=== PATIENT | male | born 1970 | race Caucasian/White ===

== ENCOUNTER 2020-03-11 14:16 | Outpatient (REF) | payer OTHER, SELFPAY ==
[2020-03-11 15:43] LABS: Creatinine Urine 114.62 mg/dL; Microalbumin Urine < 5.0 mg/L
== END 2020-03-11 14:17 | disposition home or self-care (01) ==
LOC: HO.LNP 14:16
PROVIDERS: Visit Provider Family Medicine
DX: E10.65 Type 1 diabetes mellitus with hyperglycemia (principal); I10 Essential (primary) hypertension; R68.82 Decreased libido; N52.9 Male erectile dysfunction, unspecified; Z13.9 Encounter for screening, unspecified
CPT/HCPCS: 82043

== ENCOUNTER 2021-01-11 04:25 | Emergency (ER) | payer OTHER, SELFPAY ==
--- NOTE | ~2021-01-11 | XR_ITS ---
EXAMINATION: XR FOOT, LEFT CLINICAL INFORMATION: Left foot pain, dropped engine on foot COMPARISON: None TECHNIQUE: AP, lateral, and oblique views of the left foot. FINDINGS: Osseous alignment is anatomic. No acute fracture is seen. Chronic fracture of the distal fibula is noted. Vascular calcifications are present. XR/XR foot LT 2V IMPRESSION: No acute findings identified.
[2021-01-11 04:48] VITALS: BP 123/61; PULSE 69; RESP 16; TEMP 36; O2SAT 98; BMI 20.9
--- NOTE | 2021-01-11 05:04 | ED.LOWEXIN ---
HPI - Extremity Injury (Lower) General Chief Complaint: Extremity Injury, Lower Stated Complaint: foot inj Time Seen by Provider: 01/11/21 05:04 Source: patient Mode of arrival: ambulatory History of Present Illness HPI Narrative: 50-year-old male came in for evaluation after a bed fell on his left big toe. Patient was moving a bed fell and landed on her left big toe, severe pain, unable to wear his shoes and ambulate due to pain, black and blue to the big toe. No other injuries. Related Data Home Medications Medication Instructions Recorded Confirmed blood sugar diagnostic #10 ea 03/11/20 famotidine 20 mg tablet 20 mg PO BEDTIME 03/11/20 fluoxetine 60 mg tablet 60 mg PO DAILY 03/11/20 omeprazole 20 mg capsule,delayed 20 mg PO BID 03/11/20 release ropinirole 2 mg tablet 2 mg PO BEDTIME 03/11/20 tadalafil 10 mg tablet [id number] mg PO 03/11/20 tramadol 50 mg tablet 50 mg PO Q6H PRN 03/11/20 adalimumab 80 mg/0.8 mL mg SUBCUT 07/15/20 subcutaneous pen kit Previous Rx's Medication Instructions Recorded hydrocortisone acetate 25 mg 25 mg NE BEDTIME 30 Days #30 ea 01/23/20 rectal suppository mesalamine 1,000 mg rectal 1 g NE BEDTIME 30 Days #30 ea 01/24/20 suppository sildenafil 100 mg tablet (Viagra) 100 mg PO DAILY PRN 30 Days #4 tab 03/11/20 atorvastatin 80 mg tablet 80 mg PO DAILY 90 Days #90 tab 05/03/20 metoprolol tartrate 25 mg tablet 25 mg PO DAILY 90 Days #90 tab 05/03/20 mesalamine 1.2 gram tablet,delayed 3.6 g PO DAILY #90 tab 06/04/20 release cyproheptadine 4 mg tablet 4 mg PO BID #60 tab 07/29/20 blood sugar diagnostic #200 ea 08/21/20 Novolog U-100 Insulin aspart 100 60 unit SUBCUT DAILY #20 ml NS 09/24/20 unit/mL subcutaneous solution (insulin aspart U-100) Allergies Allergy/AdvReac Type Severity Reaction Status Date / Time No Known Allergies Allergy Verified 07/15/20 14:17 [No Known Allergies*] Review of Systems Review of Systems: All other systems are reviewed and are negative Constitutional: Reports as per HPI and Reports no additional constitutional complaints Eyes: Reports as per HPI and Reports no additional eye complaints Reports system reviewed and no additional complaints, except as documented Cardiovascular: Reports as per HPI and Reports no additional cardiovascular complaints Respiratory: Reports as per HPI and Reports no additional respiratory complaints Gastrointestinal: Reports as per HPI and Reports no additional gastrointestinal complaints Genitourinary: Reports no additional female genitourinary complaints Musculoskeletal: Reports no additional musculoskeletal complaints Skin/Breast: Reports system reviewed and no additional complaints, except as docu Psychiatric: Reports no additional psychiatric complaints Endocrine: Reports no additional endocrine complaints Hematologic/Lymphatic: Reports no additional hematologic/lymphatic complaints Allergic/Immunologic: Reports no additional allergic/immunologic complaints Reports system reviewed and no additional complaints, except as documented and Reports Abnormal speech present COUNTS INCLUDE 234 BEDS AT THE [facility] Past Medical History Medical History CAD (coronary artery disease) HLD (hyperlipidemia) Surgical History History of quadruple bypass Hx of colonoscopy Family History Family History Father CVD (cardiovascular disease) Mother Cancer Social History Social History Alcohol intake: never Advance Directives: No Advance Directives Information Provided: No Physical Exam Vital Signs: Vital Signs: Last Vital Signs Temp 96.8 F 01/11/21 04:48 Pulse 69 01/11/21 04:48 Resp 16 01/11/21 04:48 BP 123/61 01/11/21 04:48 Pulse Ox 98 01/11/21 04:48 Body Mass Index 20.9 Vital signs have been reviewed as appeared to be correct. Blood pressure normal. Heart rate normal. Respiration rate normal. Temperature normal. Oxygen saturation normal. Appearance: Alert. Oriented X3. No acute distress. Head: Normal external exam. Normocephalic. Atraumatic. No Valadez signs noted. No raccoon eyes noted Eyes: PERRLA. EOMI. Conjunctiva and sclera normal. Eyelids normal. ENT: TM's Normal. Pharynx normal. Uvula midline. Moist mucous membranes. No trismus noted. No drooling noted. No muffled voice noted. Neck: Normal inspection. Neck supple. FROM. No adenopathy. Thyroid Normal. No meningeal signs. No neck mass noted. CVS: Normal heart rate and rhythm. Heart sound normal. No murmurs noted. Pulses normal throughout. Respiratory: No respiratory distress. Painless inspiration. Breath sounds normal. No wheezes/rales/rhonchi noted. Chest nontender. No accessory muscle usage noted or decreased air movement noted. Abdomen: Soft and nontender. Bowel sounds normal in all 4 quadrants. No distention noted. No organomegaly noted. No visible injury noted. Back: No CVA tenderness. Full range of motion noted. Skin: Skin warm and dry. Normal skin color. Normal skin turgor. No rashes/lesions/lacerations noted. Extremities: Left foot exam: Neurovascularly intact, tenderness on the beak toe, with ecchymosis to the left big toe. Neuro: Oriented X 3. Cranial nerve exam: II-XII are grossly intact No motor deficit. No sensory deficit. Reflexes normal. Course Course Course Narrative: 50-year-old male came in with a left big toe contusion. ice/elevation/rest MDM - Extremity Injury (Lower) Imaging Data Left foot x-ray: Radiologist's impression: No acute finding identified Discharge Plan Discharge Clinical Impression: Contusion of toe of left foot Qualifiers: Encounter type: initial encounter Toe: great toe Damage to nail status: without damage Qualified Code(s): S90.112A - Contusion of left great toe without damage to nail, initial encounter Patient Disposition: Home, Self-Care Instructions: Foot Contusion (ED) Prescriptions: No Action hydrocortisone acetate 25 mg suppository 25 mg NE BEDTIME 30 Days Qty: 30 RF: 2 mesalamine 1,000 mg suppository 1 g NE BEDTIME 30 Days Qty: 30 RF: 3 atorvastatin 80 mg tablet 80 mg PO DAILY 90 Days Qty: 90 RF: 4 metoprolol tartrate 25 mg tablet 25 mg PO DAILY 90 Days Qty: 90 RF: 3 mesalamine 1.2 gram tablet,delayed release (DR/EC) 3.6 g PO DAILY Qty: 90 RF: 1 cyproheptadine 4 mg tablet 4 mg PO BID Qty: 60 RF: 2 (DME) blood sugar diagnostic Strip See Rx Instructions .ROUTE .MEDSUPPLY Qty: 200 RF: 11 insulin aspart U-100 [Novolog U-100 Insulin aspart] 100 unit/mL solution 60 unit subcut DAILY Qty: 20 RF: 6 (DME) Contour Next Test Strips Strip See Rx Instructions ea Not Applicable .MEDSUPPLY Qty: 10 RF: 0 omeprazole 20 mg capsule,delayed release(DR/EC) 20 mg PO BID RF: 0 tramadol 50 mg tablet 50 mg PO Q6H PRNRF: 0 fluoxetine 60 mg tablet 60 mg PO DAILY RF: 0 tadalafil 10 mg tablet [id number] mg PO RF: 0 ropinirole 2 mg tablet 2 mg PO BEDTIME RF: 0 famotidine 20 mg tablet 20 mg PO BEDTIME RF: 0 sildenafil [Viagra] 100 mg tablet 100 mg PO DAILY PRN (Reason: sexual activity) 30 Days Qty: 4 RF: 6 Humira(CF) Pen [id number] 80 mg/0.8 mL pen injector kit subcut RF: 0 Referrals: Cesilia France MD [Primary Care Provider] - 2 days Stand Alone Forms: Work/School Release
--- NOTE | 2021-01-11 05:20 | PC.NURSE ---
XRAY AT BEDSIDE FOR TEST. PT AWARE AND AGREEABLE TO PLAN. NO DISTRESS NOTED. BRUISING NOTED TO LEFT GREAT TOE EXTENDING TO TOP OF FOOT.
== END 2021-01-11 07:15 | disposition home or self-care (01) ==
PROVIDERS: Emergency Provider Emergency Medicine; PCP Internal Medicine
DX: S90.112A Contusion of left great toe without damage to nail, initial encounter (principal); M79.675 Pain in left toe(s); I25.10 Atherosclerotic heart disease of native coronary artery without angina pectoris; Y29.XXXA Contact with blunt object, undetermined intent, initial encounter; Y93.9 Activity, unspecified; Y92.9 Unspecified place or not applicable; Y99.9 Unspecified external cause status; Z79.899 Other long term (current) drug therapy
CPT/HCPCS: 73620; 99283

== ENCOUNTER 2022-06-13 11:00 | Emergency (ER) | payer OTHER, SELFPAY ==
[2022-06-13 12:01] VITALS: BP 143/53; PULSE 64; RESP 18; TEMP 36.7; O2SAT 98; BMI 22.3
--- NOTE | 2022-06-13 12:06 | ED.BACK ---
HPI - Back Pain/Injury General Chief Complaint: Extremity Injury, Upper Stated Complaint: Back pain/Shoulder pain Time Seen by Provider: 06/13/22 12:10 Source: patient Mode of arrival: ambulatory Limitations: no limitations History of Present Illness HPI Narrative: 51 yo male with history of DM1, Crohn's disease, CAD, HLD, HTN who presents to the ER for evaluation of left sided upper back pain and spasm that started after reaching down and working in odd positions while at work last week. 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 The pain has been waxing/waning since 06/09. Worse with movement and deep breaths. Pain located inside of his left shoulder blade without radiation. No SOB or chest pain. No numbness or weakness. MD elicited complaint: back pain and back injury Onset (ago): day(s) (6) Severity: moderate Quality: stabbing, aching and spasming Location: left upper back Radiation: none Exacerbating factors: movement and deep breaths Relieving factors: immobilization Context: turning/twisting and bending Associated symptoms: denies other symptoms Work related injury: Yes Related Data Home Medications Medication Instructions Recorded Confirmed blood sugar diagnostic #10 ea 03/11/20 famotidine 20 mg tablet 20 mg PO BEDTIME 03/11/20 fluoxetine 60 mg tablet 60 mg PO DAILY 03/11/20 omeprazole 20 mg capsule,delayed 20 mg PO BID 03/11/20 release ropinirole 2 mg tablet 2 mg PO BEDTIME 03/11/20 tadalafil 10 mg tablet [id number] mg PO 03/11/20 tramadol 50 mg tablet 50 mg PO Q6H PRN 03/11/20 adalimumab 80 mg/0.8 mL mg subcut 07/15/20 subcutaneous pen kit Previous Rx's Medication Instructions Recorded hydrocortisone acetate 25 mg 25 mg ME BEDTIME 30 days #30 ea 01/23/20 rectal suppository mesalamine 1,000 mg rectal 1 g ME BEDTIME 30 days #30 ea 01/24/20 suppository sildenafil 100 mg tablet (Viagra) 100 mg PO DAILY PRN sexual 03/11/20 activity 30 days #4 tabs atorvastatin 80 mg tablet 80 mg PO DAILY 90 days #90 tabs 05/03/20 metoprolol tartrate 25 mg tablet 25 mg PO DAILY 90 days #90 tabs 05/03/20 mesalamine 1.2 gram tablet,delayed 3.6 g PO DAILY #90 tabs 06/04/20 release cyproheptadine 4 mg tablet 4 mg PO BID #60 tabs 07/29/20 blood sugar diagnostic #200 ea 08/21/20 Novolog U-100 Insulin aspart 100 60 unit (0.6 mL) subcut DAILY #20 08/02/21 unit/mL subcutaneous solution mL (insulin aspart U-100) cyclobenzaprine 10 mg tablet 10 mg PO TID PRN muscle spasm #14 06/13/22 tabs ibuprofen 600 mg tablet 600 mg PO Q8H PRN pain #20 tabs 06/13/22 lidocaine 5 % topical patch 1 patch topical DAILY #15 ea 06/13/22 tramadol 50 mg tablet 50 mg PO Q6H PRN pain #20 tabs 06/15/22 Allergies Allergy/AdvReac Type Severity Reaction Status Date / Time No Known Allergies Allergy Verified 07/15/20 14:17 [No Known Allergies*] Review of Systems Review of Systems: Yes all other systems are reviewed and are negative [facility] Past Medical History Medical History CAD (coronary artery disease) HLD (hyperlipidemia) Surgical History History of quadruple bypass Hx of colonoscopy Family History Family History Father CVD (cardiovascular disease) Mother Cancer Social History Social History Alcohol intake: never Advance Directives: No Advance Directives Information Provided: Yes Physical Exam Vital Signs: Vital Signs: Last Vital Signs Temp 98.0 F 06/13/22 12:01 Pulse 64 06/13/22 12:01 Resp 18 06/13/22 12:01 BP 143/53 H 06/13/22 12:01 Pulse Ox 98 06/13/22 12:01 O2 Del Method 06/13/22 12:01 BMI result Body Mass Index 22.3 Appearance: Alert. Oriented X3. No acute distress. HEENT: normal inspection CVS: Normal heart rate and rhythm. Pulses normal. Respiratory: No respiratory distress. Back: normal inspection, soft tissue tenderness and spasm of the paravertebral muscles and trapezius. no midline tenderness Skin: Skin warm and dry. Normal skin color. Normal skin turgor. No rashes. Extremities: normal inspection x4. normal ROM Neuro: Oriented X 3. No motor deficit. No sensory deficit. Course Course Course Narrative: 51 yo male presents to the ER for evaluation of right upper back pain for the last several days that started after he was required to go under equipment at work, bend and get objects in awkward positions. Exam and clinical presentation are c/w muscle spasm and strain. Will treat accordingly. Encouraged to f/u with his PCP. Stable for d/c home. Medical Decision Making Differential Diagnosis Differential Diagnoses: The differential diagnosis associated with the presentation includes muscle strain, spasm, doubt any referred pain from the gallbladder, spinal fracture Prescription Management I considered prescription management with: Pain Medication Critical Care Time Critical Care Time Critical Care Time: No Discharge Plan Discharge Clinical Impression: Back spasm Patient Disposition: Home, Self-Care Instructions: Muscle Spasm (ED), Back Pain (ED) Additional Instructions: Your pain is due to muscle strain and spasm. No bending, lifting or twisting. Use ice several times per day for 20 minutes at a time for the next 48 hours and then change to heat. Take medications as prescribed to help with pain and discomfort. Follow up with your Primary Care Doctor this week. If your pain worsens, if you develop new numbness, tingling, weakness, loss of function or any other concerning symptoms call 911 or come back to the ER right away for evaluation. Prescriptions: New cyclobenzaprine 10 mg tablet 10 mg PO TID PRN (Reason: muscle spasm) Qty: 14 0RF ibuprofen 600 mg tablet 600 mg PO Q8H PRN (Reason: pain) Qty: 20 0RF lidocaine 5 % adhesive patch,medicated 1 patch topical DAILY Qty: 15 0RF Rx Instructions: leave on most painful area for up to 12 hrs No Action hydrocortisone acetate 25 mg suppository 25 mg ME BEDTIME 30 Days Qty: 30 2RF mesalamine 1,000 mg suppository 1 g ME BEDTIME 30 Days Qty: 30 3RF atorvastatin 80 mg tablet 80 mg PO DAILY 90 Days Qty: 90 4RF metoprolol tartrate 25 mg tablet 25 mg PO DAILY 90 Days Qty: 90 3RF mesalamine 1.2 gram tablet,delayed release (DR/EC) 3.6 g PO DAILY Qty: 90 1RF cyproheptadine 4 mg tablet 4 mg PO BID Qty: 60 2RF (DME) blood sugar diagnostic Strip See Rx Instructions .ROUTE .MEDSUPPLY Qty: 200 11RF Rx Instructions: E10.65, Test Blood Sugar 4 times a day. 30 days insulin aspart U-100 [Novolog U-100 Insulin aspart] 100 unit/mL solution 60 unit subcut DAILY Qty: 20 6RF tramadol 50 mg tablet 50 mg PO Q6H PRN (Reason: pain) Qty: 20 0RF (DME) Contour Next Test Strips Strip See Rx Instructions Not Applicable .MEDSUPPLY Qty: 10 Rx Instructions: As directed omeprazole 20 mg capsule,delayed release(DR/EC) 20 mg PO BID tramadol 50 mg tablet 50 mg PO Q6H PRN fluoxetine 60 mg tablet 60 mg PO DAILY tadalafil 10 mg tablet [id number] mg PO ropinirole 2 mg tablet 2 mg PO BEDTIME famotidine 20 mg tablet 20 mg PO BEDTIME sildenafil [Viagra] 100 mg tablet 100 mg PO DAILY PRN (Reason: sexual activity) 30 Days Qty: 4 6RF Rx Instructions: administer 30 minutes to 4 hours before activity Kol[place](CF) Pen Hslrsm-CT-[id number] 80 mg/0.8 mL pen injector kit subcut Referrals: Cesilia France MD [Primary Care Provider] - Stand Alone Forms: Work/School Release Interventions: ED Discharge Assessment Last Done: 06/13/22 12:34 Discharge Date/Time: 06/13/22 12:35
--- OUTSIDE RECORDS SUMMARY | 2022-06-13 12:17 | XMS_ITS | Continuity of Care Document ---
:1970 Author Organization [facility] Address [address] [place] [id number]- Care Team Providers Name Role Phone Ashanti TAMAYO, Volodymyr Braga Primary Care Physician [place] [facility] [place] [id number] Date(s): 01/11/21 - 01/11/[address] [address]- Discharge Disposition: A-D/C Walkout Attending Physician: Derrek Gonsales MD Admitting Physician: Derrek Gonsales MD Referring Physician: Not on Staff, Referring MD Allergies, Adverse Reactions, Alerts Substance Reaction Severity Status NKA Active Medications aspirin 81 mg oral delayed release tablet 81 mg, By Mouth, Daily, Refills 0, Maintenance, 07/28/16 15:09:46 Start Date: 07/28/16 Status: Orderedatorvastatin 80 mg oral tablet = 80 mg, By Mouth, Daily at bedtime, # 30 tablet, 0 Refills, Maintenance, Tablet, Route to Pharmacy Electronically, [id number], [facility] Start Date: 07/28/16 Stop Date: 08/27/16 Status: OrderedBasaglar kwikpen 100 units/ml Basaglar kwikpen 100 units/ml, See Instructions, # 30 Doses, Refills 11, Tot. Refills 11, Maintenance, 15 units daily prn pump failure, 10/11/17 13:26:43 EDT, Compound Start Date: 10/11/17 Status: OrderedContour Next EZ Test Strips See Instructions, # 300 each, Refills 11, Tot. Refills 11, Maintenance, Use to test SMBG up to 10 times daily. for T1DM/E10, 10/11/17 13:25:39 EDT, Compound Start Date: 10/11/17 Stop Date: 10/06/18 Status: Orderedcyproheptadine 4 mg oral tablet 4 mg, 1, tablet, By Mouth, 2 times a day, # 30 tablet, Refills 0, Maintenance, 07/06/20 9:25:00 EDT,Partial fill upon patient request if the prescription is for a schedule II opioid drug. Start Date: 07/06/20 Stop Date: 07/16/20 Status: OrderedGlucagon Emergency Kit See Instructions, # 1 kit, Refills 3, Tot. Refills 3, Maintenance, inject IM in the event of severe hypoglycemia. for T1DM/E10., 10/11/17 13:25:12 EDT, Compound Start Date: 10/11/17 Status: OrderedKetostix See Instructions, # 1 bottle, Refills 3, Tot. Refills 3, Maintenance, use to test for urine ketones prn nausea/vomiting or BG > 300 mg/dl. for T1DM/E10., 10/11/17 13:24:53 EDT, Compound Start Date: 10/11/17 Status: Orderedmetoprolol 25 mg oral tablet 12.5 mg, 0.5, tablet, By Mouth, 2 times a day, use Metoprolol TARTRATE, # 30 tablet, Refills 0, Tot.Refills 0, Maintenance, 07/28/16 15:16:43, Route to Pharmacy Electronically, [id number], [facility] Start Date: 07/28/16 Stop Date: 08/27/16 Status: OrderedNovoLOG 100 units/mL subcutaneous solution See Instructions, Subcutaneous Injection, infuse up to 60 units SC daily via an insulin pump. T1DM/E10.9, 2 vials needed due to infusion site change every 3 days, # 20 mL, 11 Refills, Maintenance, 10/11/17 13:26:06 EDT Start Date: 10/11/17 Stop Date: 10/06/18 Status: OrderedPen Tenafly, 31 G x 5 mm BD Ultra Fine III See Instructions, # 100 each, Refills 2, Tot. Refills 2, Maintenance, use to inject basaglar daily. for T1DM/E10, 01/25/17 16:26:44, Compound Start Date: 01/25/17 Stop Date: 04/25/17 Status: OrderedPlavix 75 mg oral tablet 75 mg, By Mouth, Daily, # 30 tablet, Refills 0, Tot. Refills 0, Maintenance, 07/28/16 15:09:58, Route to Pharmacy Electronically, [id number], [facility] 3 Start Date: 07/28/16 Stop Date: 08/27/16 Status: OrderedTylenol 325 mg oral tablet 650 mg, By Mouth, Every 6 hours, PRN, Refills 0, Maintenance, Pain , Mild, 07/28/16 15:09:26 Start Date: 07/28/16 Status: Ordered Problem List Condition Effective Dates Status Health Status Informant Crohn's disease(Confirmed) Active Hyperlipidemia(Confirmed) Active 3-vessel coronary artery Active disease(Confirmed)1 T1DM (type 1 diabetes Active mellitus)(Confirmed) 1s/p quadruple Bypass in June 2016 Vital Signs Most recent to oldest [Reference Range]: 1 Oxygen Saturation [94-100 %] 95 % (01/11/21 3:53 AM) Pulse Rate [55-90 bpm] 76 bpm (01/11/21 3:53 AM) Blood Pressure [90-138/55-84 mm Hg] 156/71 mm Hg *H* (01/11/21 3:53 AM) Respiratory Rate [16-30 br/min] 16 br/min (01/11/21 3:53 AM) Temperature [96.8-100.4 DegF] 98.4 DegF (01/11/21 3:53 AM) Mode of Delivery (Oxygen) Room air (01/11/21 3:53 AM) Blood pressure sites Arm, right (01/11/21 3:53 AM) Temperature Route Oral (01/11/21 3:53 AM) Social History Social History Type Response Smoking Status Former smoker entered on: 09/17/17 Sex
--- OUTSIDE RECORDS SUMMARY | 2022-06-13 12:17 | XMS_ITS | Continuity of Care Document ---
:1970 Author Organization [facility] Address [address] [place] [id number]- Care Team Providers Name Role Phone Not on Staff, PCP Primary Care Physician Unavailable Encounter [facility] Date(s): 09/30/21 - 10/30/21 [facility] [address] [place] [id number] Allergies, Adverse Reactions, Alerts No Known Allergies Medications aspirin 81 mg oral delayed release tablet 81 mg, By Mouth, Daily, Refills 0, Maintenance, 07/28/16 15:09:46 Start Date: 07/28/16 Status: Orderedatorvastatin 80 mg oral tablet = 80 mg, By Mouth, Daily at bedtime, # 30 tablet, 0 Refills, Maintenance, Tablet, Route to Pharmacy Electronically, [id number], [facility] Start Date: 07/28/16 Stop [...] Start Date: 07/06/20 Stop Date: 07/16/20 Status: OrderedDexcom G6 Sensors Dexcom G6 Sensors, See Instructions, # 3 each, Refills 11, Tot. Refills 11, Maintenance, IDDM, change every 10 days Type 1 DM Dx 10.9, 09/30/21 12:22:00 EDT, Compound, 180, cm, 10/30/20 14:56:00 EDT, Height Start Date: 09/30/21 Status: OrderedDexcom G6 transmitter Dexcom G6 transmitter, See Instructions, # 1 each, Refills 3, Tot. Refills 3, Maintenance, IDDM, chnage every 90 days Dx 10.9 T1DM, 02/03/21 12:48:00 EDT, Compound, 180, cm, 10/30/20 14:56:00 EDT, Height Start Date: 02/03/21 Status: OrderedDexcom Entry Specialists Dexcom Entry Specialists, See Instructions, # 1 each, Refills 1, Tot. Refills 1, Maintenance, Dexcom ReceiverTo be use to monitor blood sugar for type 1 diabetes. dx 10.9, 02/03/21 15:33:00 EDT, Supply, 180, cm, 10/30/20 14:56:00 EDT, Height Start Date: 02/03/21 Status: OrderedGlucagon Emergency Kit See Instructions, # [...] 13:24:53 EDT, Compound Start Date: 10/11/17 Status: OrderedLantus Solostar Pen 100 units/mL subcutaneous solution See Instructions, Subcutaneous Injection, Use as directed for Diabetes mellitus type 1. Take 17 units daily in event of pump failure, # 3 each, 5 Refills, Maintenance, 10/07/21 11:25:00 EDT, [id number], Partial fill upon patient reque... Start Date: 01/28/21 Stop Date: 07/27/21 Status: Orderedmetoprolol 25 mg oral tablet 12.5 mg, 0.5, tablet, By Mouth, 2 times a day, use Metoprolol TARTRATE, # 30 tablet, Refills 0, Tot.Refills 0, Maintenance, 07/28/16 15:16:43, Route to Pharmacy Electronically, [id number], [facility] Start Date: 07/28/16 Stop Date: 08/27/16 Status: OrderedNovoLOG 100 units/mL subcutaneous solution See Instructions, Subcutaneous Injection, infuse up to 60 units SC daily via an insulin pump. T1DM/E10.9, 2 vials needed due to infusion site change every 3 days, # 20 mL, 11 Refills, Maintenance, 10/11/17 13:26:06 EDT Start Date: 10/11/17 Stop Date: 10/06/18 Status: OrderedPen Ucon, 31 G x 5 mm BD Ultra Fine III See Instructions, # 100 each, Refills 2, Tot. Refills 2, Maintenance, use to inject basaglar daily. for T1DM/E10, 01/25/17 16:26:44, Compound Start Date: 01/25/17 Stop Date: 04/25/17 Status: OrderedPlavix 75 mg oral tablet 75 mg, By Mouth, Daily, # 30 tablet, Refills 0, Tot. Refills 0, Maintenance, 07/28/16 15:09:58, Route to Pharmacy Electronically, [id number], [facility] Start Date: 07/28/16 Stop [...] mellitus)(Confirmed) 1s/p quadruple Bypass in June 2016 Social History Social History Type Response Smoking Status Former smoker entered on: 09/17/17 Sex
--- OUTSIDE RECORDS SUMMARY | 2022-06-13 12:17 | XMS_ITS | Continuity of Care Document ---
:1970 Author Organization [facility] Address [address] [place] [address]- Care Team Providers Name Role Phone Román TAMAYO, Cesilia Agustin Primary Care Physician [place] [facility] [place] 03[place]/22 [facility] [address] [place] [id number] Allergies, Adverse Reactions, Alerts No Known Allergies Medications aspirin 81 mg oral delayed release tablet 81 mg, By Mouth, Daily, Refills 0, Maintenance, 07/28/16 15:09:46 Start Date: 07/28/16 Status: Orderedatorvastatin 80 mg oral tablet = 80 mg, By Mouth, Daily at bedtime, # 30 tablet, 0 Refills, Maintenance, Tablet, Route to Pharmacy Electronically, [id number], [facility] Start Date: 07/28/16 Stop [...] 10 days Type 1 DM Dx 10.9, 02/15/22 13:25:00 EDT, Compound, 180, cm, 10/30/20 14:56:00 EDT, Height Start Date: 02/15/22 Status: OrderedDexcom G6 transmitter Dexcom G6 transmitter, See Instructions, # 1 each, Refills 3, Tot. Refills 3, Maintenance, IDDM, chnage every 90 days Dx 10.9 T1DM, 02/15/22 13:24:00 EDT, Compound, 180, cm, 10/30/20 14:56:00 EDT, Height Start Date: 02/15/22 Status: OrderedDexcom Wood Router Hand Dexcom Wood Router Hand, See Instructions, # 1 each, Refills 1, [...] 13:25:12 EDT, Compound Start Date: 10/11/17 Status: Orderedinsulin lispro 100 u/ml subcutaneous injection See Instructions, to be used via insulin pump up to 60 units daily Type 1 Diabetes E10.9 2 vials needed due to infusion site changed q 3 days, # 20 mL, 11 Refills, Maintenance, 02/16/22 11:57:00 EDT, [facility]/pharmacy #[id number], Partial fill upon patient... Start Date: 02/16/22 Status: OrderedKetostix See Instructions, # 1 bottle, [...] failure, # 3 each, 5 Refills, Maintenance, 01/28/21 11:25:00 EDT, [id number], Partial fill upon patient reque... Start Date: 01/28/21 Stop Date: 07/27/21 Status: Orderedmetoprolol 25 mg oral tablet 12.5 mg, 0.5, tablet, By Mouth, 2 times a day, use Metoprolol TARTRATE, # 30 tablet, Refills 0, Tot.Refills 0, Maintenance, 07/28/16 15:16:43, Route to Pharmacy Electronically, [id number], [facility] 3 Start Date: 07/28/16 Stop Date: 08/27/16 Status: OrderedNovoLOG 100 units/mL subcutaneous solution See Instructions, Subcutaneous Injection, infuse up to 60 units SC daily via an insulin pump. T1DM/E10.9, 2 vials needed due to infusion site change every 3 days, # 20 mL, 11 Refills, Maintenance, 10/11/17 13:26:06 EDT Start Date: 10/11/17 Stop Date: 10/06/18 Status: OrderedPen [place], 31 G x 5 mm BD Ultra Fine III See Instructions, # 100 each, Refills 2, Tot. Refills 2, Maintenance, use to inject basaglar daily. for T1DM/E10, 01/25/17 16:26:44, Compound Start Date: 01/25/17 Stop Date: 04/25/17 Status: OrderedPlavix 75 mg oral tablet 75 mg, By Mouth, Daily, # 30 tablet, Refills 0, Tot. Refills 0, Maintenance, 07/28/16 15:09:58, Route to Pharmacy Electronically, [id number], [facility] Start Date: 07/28/16 Stop Date: 08/27/16 Status: OrderedTylenol 325 mg oral tablet 650 mg, By Mouth, Every 6 hours, PRN, Refills 0, Maintenance, Pain , Mild, 07/28/16 15:09:26 Start Date: 07/28/16 Status: Ordered Problem List Condition Confirmation Course Effective Dates Status Health I nformant Status Crohn's disease Confirmed Active Hyperlipidemia Confirmed Active 3-vessel coronary Confirmed Active artery disease1 T1DM (type 1 diabetes Confirmed Active mellitus) 1s/p quadruple Bypass in June 2016 Social History Social History Type Response Smoking Status Former smoker entered on: 09/17/17 Sex Patient Care team information Care Team PersonnelName: Jose Luis Turner RN Position: [facility] RN Member Role: Primary Care Nurse Name: Cesilia France MD Position: [facility] Physician (General Medicine) Member Role: PCP Address: Address: [address] [place] [address] Name: Joselin Staton RN Position: [facility] RN Member Role: Primary Care Nurse Name: Mally Gomez RN Position: [facility] Hospital Director Dermatology Member Role: Primary Care Nurse Name: Alondra Burgos Position: [facility] RN Member Role: Primary Care Nurse Name: Sofya Vallecillo RN Position: [facility] Oncsheron RN Member Role: Primary Care Nurse Name: Britni Diop RN Position: [facility] RN Member Role: Primary Care Nurse Care Team Related PersonsName: SPIKE EVANS Address: home [address] [address] Name: KASANDRA JACKSON Address: home [address] [place] [address] Name: ALONDRA TREVIÑO Address: home [facility]KNOWN [facility]
--- OUTSIDE RECORDS SUMMARY | 2022-06-13 12:17 | XMS_ITS | Continuity of Care Document ---
:1970 Author Organization [facility] Address [address] [place] [address]- Care Team Providers Name Role Phone Ashanti TAMAYO, Volodymyr Braga Primary Care Physician [place] [facility] [place] 03[place]21 [facility] Diabetes [address] [place] [id number] Allergies, Adverse Reactions, Alerts Substance Reaction Severity Status NKA Active Medications aspirin 81 mg oral delayed release tablet 81 mg, By Mouth, Daily, Refills 0, Maintenance, 07/28/16 15:09:46 Start Date: 07/28/16 Status: Orderedatorvastatin 80 mg oral tablet = 80 mg, By Mouth, Daily at bedtime, # 30 tablet, 0 Refills, Maintenance, Tablet, Route to Pharmacy Electronically, [id number], [facility] Start Date: 07/28/16 Stop Date: [...] 10 days Type 1 DM Dx 10.9, 02/03/21 12:48:00 EDT, Compound, 180, cm, 10/30/20 14:56:00 EDT, Height Start Date: 02/03/21 Status: OrderedDexcom G6 transmitter Dexcom G6 transmitter, See Instructions, # 1 each, Refills 3, Tot. Refills 3, Maintenance, IDDM, chnage every 90 days Dx 10.9 T1DM, 02/03/21 12:48:00 EDT, Compound, 180, cm, 10/30/20 14:56:00 EDT, Height Start Date: 02/03/21 Status: OrderedDexcom Non Destructive Testing Engineer Dexcom Non Destructive Testing Engineer, See Instructions, # 1 each, Refills 1, [...] each, 5 Refills, Maintenance, 01/28/21 11:25:00 EDT, [facility] #[id number], Partial fill upon patient reque... Start Date: 01/28/21 Stop Date: 07/27/21 Status: Orderedmetoprolol 25 mg oral tablet 12.5 mg, 0.5, tablet, By Mouth, 2 times a day, use Metoprolol TARTRATE, # 30 tablet, Refills 0, Tot.Refills 0, Maintenance, 07/28/16 15:16:43, Route to Pharmacy Electronically, [id number], [facility] Start Date: 07/28/16 Stop Date: 08/27/16 Status: OrderedNovoLOG 100 units/mL subcutaneous solution See Instructions, Subcutaneous Injection, infuse up to 60 units SC daily via an insulin pump. T1DM/E10.9, 2 vials needed due to infusion site change every 3 days, # 20 mL, 11 Refills, Maintenance, 10/11/17 13:26:06 EDT Start Date: 10/11/17 Stop Date: 10/06/18 Status: OrderedPen [place], 31 G x 5 mm BD Ultra Fine III See Instructions, # 100 each, Refills 2, Tot. Refills 2, Maintenance, use to inject basaglar daily. for T1DM/E10, 01/25/17 16:26:44, Compound Start Date: 01/25/17 Stop Date: 04/25/17 Status: OrderedPlavix 75 mg oral tablet 75 mg, By Mouth, Daily, # 30 tablet, Refills 0, Tot. Refills 0, Maintenance, 07/28/16 15:09:58, Route to Pharmacy Electronically, [id number], [facility] Start Date: 07/28/16 Stop Date: [...]
--- OUTSIDE RECORDS SUMMARY | 2022-06-13 12:17 | XMS_ITS | Continuity of Care Document ---
:1970 Author Organization [facility] Address [address] [place] [phone]- Care Team Providers Name Role Phone Ashanti TAMAYO, Volodymyr Braga Primary Care Physician En[place] [facility] [place] Date(s): 11/02/20 - 12/02/20 [facility] Diabetes [address] [place] [id number] Allergies, Adverse Reactions, Alerts Substance Reaction Severity Status NKA Active Medications aspirin 81 mg oral delayed release tablet 81 mg, By Mouth, Daily, Refills 0, Maintenance, 07/28/16 15:09:46 Start Date: 07/28/16 Status: Orderedatorvastatin 80 mg oral tablet = 80 mg, By Mouth, Daily at bedtime, # 30 tablet, 0 Refills, Maintenance, Tablet, Route to Pharmacy Electronically, [id number], [facility] Start Date: 07/28/16 Stop [...] Maintenance, 07/28/16 15:16:43, Route to Pharmacy Electronically, [id number], [facility] 3 Start Date: 07/28/16 Stop Date: 08/27/16 Status: OrderedNovoLOG 100 units/mL subcutaneous solution See Instructions, Subcutaneous Injection, infuse up to 60 units SC daily via an insulin pump. T1DM/E10.9, 2 vials needed due to infusion site change every 3 days, # 20 mL, 11 Refills, Maintenance, 10/11/17 13:26:06 EDT Start Date: 10/11/17 Stop Date: 10/06/18 Status: OrderedPen [place], 31 G x 5 mm BD Ultra Fine III See Instructions, # 100 each, Refills 2, Tot. Refills 2, Maintenance, use to inject basaglar daily. for T1DM/E10, 01/25/17 16:26:44, Compound Start Date: 01/25/17 Stop Date: 04/25/17 Status: OrderedPlavix 75 mg oral tablet 75 mg, By Mouth, Daily, # 30 tablet, Refills 0, Tot. Refills 0, Maintenance, 07/28/16 15:09:58, Route to Pharmacy Electronically, [id number], [facility] 3 Start Date: 07/28/16 Stop Date: 08/27/16 [...]
--- OUTSIDE RECORDS SUMMARY | 2022-06-13 12:17 | XMS_ITS | Continuity of Care Document ---
:1970 Author Organization [facility] Address [address] [place] [address]- Care Team Providers Name Role Phone Ashanti TAMAYO, Volodymyr Braga Primary Care Physician En[facility] [place] Date(s): 11/04/20 - 12/04/20 [facility] Diabetes [address] [place] [id number] Allergies, Adverse Reactions, Alerts Substance Reaction Severity Status NKA Active Medications aspirin 81 mg oral delayed release tablet 81 mg, By Mouth, Daily, Refills 0, Maintenance, 07/28/16 15:09:46 Start Date: 07/28/16 Status: Orderedatorvastatin 80 mg oral tablet = 80 mg, By Mouth, Daily at bedtime, # 30 tablet, 0 Refills, Maintenance, Tablet, Route to Pharmacy Electronically, [id number], [facility] Start Date: 07/28/16 [...] Maintenance, 07/28/16 15:16:43, Route to Pharmacy Electronically, [id number], [facility] 3 Start Date: 07/28/16 Stop Date: 08/27/16 Status: OrderedNovoLOG 100 units/mL subcutaneous solution See Instructions, Subcutaneous Injection, infuse up to 60 units SC daily via an insulin pump. T1DM/E10.9, 2 vials needed due to infusion site change every 3 days, # 20 mL, 11 Refills, Maintenance, 10/11/17 13:26:06 EDT Start Date: 10/11/17 Stop Date: 10/06/18 Status: OrderedPen [place], 31 G x 5 mm BD Ultra Fine III See Instructions, # 100 each, Refills 2, Tot. Refills 2, Maintenance, use to inject basaglar daily. for T1DM/E10, 01/25/17 16:26:44, Compound Start Date: 01/25/17 Stop Date: 04/25/17 Status: OrderedPlavix 75 mg oral tablet 75 mg, By Mouth, Daily, # 30 tablet, Refills 0, Tot. Refills 0, Maintenance, 07/28/16 15:09:58, Route to Pharmacy Electronically, [id number], [facility] 3 Start Date: 07/28/16 Stop [...]
--- OUTSIDE RECORDS SUMMARY | 2022-06-13 12:17 | XMS_ITS | Continuity of Care Document ---
:1970 Author Organization [facility] Address [address] [place] [address]- Care Team Providers Name Role Phone Román TAMAYO, Cesilia Agustin Primary Care Physician [place] [facility] [place]16[place]22 - 03/18/22 [facility] Diabetes [address] [place] [address] Allergies, Adverse Reactions, Alerts No Known Allergies Medications aspirin 81 mg oral delayed release tablet 81 mg, By Mouth, Daily, Refills 0, Maintenance, 07/28/16 15:09:46 Start Date: 07/28/16 Status: Orderedatorvastatin 80 mg oral tablet = 80 mg, By Mouth, Daily at bedtime, # 30 tablet, 0 Refills, Maintenance, Tablet, Route to Pharmacy Electronically, [id number], [facility] Start Date: 07/28/16 Stop [...] EDT, Height Start Date: 02/15/22 Status: OrderedDexcom Informatics Scientist Dexcom Informatics Scientist, See Instructions, # 1 each, Refills 1, [...] mL, 11 Refills, Maintenance, 02/16/22 11:57:00 EDT, [facility]/pharmacy #[id number], Partial fill upon patient... Start Date: 02/16/22 [...] each, 5 Refills, Maintenance, 01/28/21 11:25:00 EDT, [facility] #[id number], Partial fill upon patient reque... Start Date: 01/28/21 Stop Date: 07/27/21 Status: Orderedmetoprolol 25 mg oral tablet 12.5 mg, 0.5, tablet, By Mouth, 2 times a day, use Metoprolol TARTRATE, # 30 tablet, Refills 0, Tot.Refills 0, Maintenance, 07/28/16 15:16:43, Route to Pharmacy Electronically, [id number], [facility] Start Date: 07/28/16 Stop Date: 08/27/16 Status: OrderedNovoLOG 100 units/mL subcutaneous solution See Instructions, Subcutaneous Injection, infuse up to 60 units SC daily via an insulin pump. T1DM/E10.9, 2 vials needed due to infusion site change every 3 days, # 20 mL, 11 Refills, Maintenance, 10/11/17 13:26:06 EDT Start Date: 10/11/17 Stop Date: 10/06/18 Status: OrderedPen [place], 31 G x 5 mm BD Ultra Fine III See Instructions, # 100 each, Refills 2, Tot. Refills 2, Maintenance, use to inject basaglar daily. for T1DM/E10, 01/25/17 16:26:44, Compound Start Date: 01/25/17 Stop Date: 04/25/17 Status: OrderedPlavix 75 mg oral tablet 75 mg, By Mouth, Daily, # 30 tablet, Refills 0, Tot. Refills 0, Maintenance, 07/28/16 15:09:58, Route to Pharmacy Electronically, [id number], [facility] Start Date: 07/28/16 Stop [...] Team PersonnelName: Jose Luis Turner RN Position: [facility] RN Member Role: Primary Care Nurse Name: Román TAMAYO, Cesilia Agustin Position: [facility] Physician (General Medicine) Member Role: PCP Address: Address: [address] [place] [address] Name: Joselin Staton RN Position: [facility] RN Member Role: Primary Care Nurse Name: Mally Gomez RN Position: [facility] Hospital Motor Pool Clerk Member Role: Primary Care Nurse Name: Alondra Burgos Position: [facility] RN Member Role: Primary Care Nurse Name: Sofya Vallecillo RN Position: [facility] [place] RN Member Role: Primary Care Nurse Name: Britni Diop RN Position: [facility] RN Member Role: Primary Care Nurse Care Team Related PersonsName: NATHAN SPIKE Address: home [address] [place] [id number] Name: KASANDRA JACKSON Address: home [address] [place] [address] Name: ALONDRA TREVIÑO Address: home [facility]KNOWN [facility]
--- OUTSIDE RECORDS SUMMARY | 2022-06-13 12:17 | XMS_ITS | Continuity of Care Document ---
:1970 Author Organization [facility] Address [address] [place] [address]- Care Team Providers Name Role Phone Román TAMAYO, Cesilia Agustin Primary Care Physician [place] [facility] [place]/22 [facility] Endocrinology and Diabetes [address] [place] [id number] Allergies, Adverse Reactions, Alerts No Known Allergies Medications aspirin 81 mg oral delayed release tablet 81 mg, By Mouth, Daily, Refills 0, Maintenance, 07/28/16 15:09:46 Start Date: 07/28/16 Status: Orderedatorvastatin 80 mg oral tablet = 80 mg, By Mouth, Daily at bedtime, # 30 tablet, 0 Refills, Maintenance, Tablet, Route to Pharmacy Electronically, [id number], [facility] Start Date: 07/28/16 Stop [...] EDT, Height Start Date: 02/15/22 Status: OrderedDexcom Electric Motor Mechanic Dexcom Electric Motor Mechanic, See Instructions, # 1 each, Refills 1, [...] mL, 11 Refills, Maintenance, 02/16/22 11:57:00 EDT, [facility]/pharmacy #[id number], Partial fill upon patient... Start Date: 02/16/22 [...] each, 5 Refills, Maintenance, 01/28/21 11:25:00 EDT, [facility] #[id number], Partial fill upon patient reque... Start Date: 01/28/21 Stop Date: 07/27/21 Status: Orderedmetoprolol 25 mg oral tablet 12.5 mg, 0.5, tablet, By Mouth, 2 times a day, use Metoprolol TARTRATE, # 30 tablet, Refills 0, Tot.Refills 0, Maintenance, 07/28/16 15:16:43, Route to Pharmacy Electronically, [id number], [facility] 3 Start Date: 07/28/16 Stop Date: 08/27/16 Status: OrderedNovoLOG 100 units/mL subcutaneous solution See Instructions, Subcutaneous Injection, infuse up to 60 units SC daily via an insulin pump. T1DM/E10.9, 2 vials needed due to infusion site change every 3 days, # 20 mL, 11 Refills, Maintenance, 10/11/17 13:26:06 EDT Start Date: 10/11/17 Stop Date: 10/06/18 Status: OrderedPen [place], 31 G x 5 mm BD Ultra Fine III See Instructions, # 100 each, Refills 2, Tot. Refills 2, Maintenance, use to inject basaglar daily. for T1DM/E10, 01/25/17 16:26:44, Compound Start Date: 01/25/17 Stop Date: 04/25/17 Status: OrderedPlavix 75 mg oral tablet 75 mg, By Mouth, Daily, # 30 tablet, Refills 0, Tot. Refills 0, Maintenance, 07/28/16 15:09:58, Route to Pharmacy Electronically, [id number], [facility] Start Date: 07/28/16 Stop [...] Team PersonnelName: Jose Luis Turner RN Position: [facility] RN Member Role: Primary Care Nurse Name: Cesilia France MD Position: [facility] Physician (General Medicine) Member Role: PCP Address: Address: [address] [place] [address] Name: Joselin Staton RN Position: [facility] RN Member Role: Primary Care Nurse Name: Mally Gomez RN Position: [facility] Hospital Group Work Program Director Member Role: Primary Care Nurse Name: Alondra Burgos Position: [facility] RN Member Role: Primary Care Nurse Name: Sofya Vallecillo RN Position: [facility] Oncsheron RN Member Role: Primary Care Nurse Name: Britni Diop RN Position: [facility] RN Member Role: Primary Care Nurse Care Team Related PersonsName: SPIKE EVANS Address: home [address] [address] Name: KASANDRA JACKSON Address: home [address] [place] [address] Name: ALONDRA TREVIÑO Address: home [facility]
--- OUTSIDE RECORDS SUMMARY | 2022-06-13 12:17 | XMS_ITS | Continuity of Care Document ---
:1970 Author Organization [facility] Address [address] [place] [address]- Care Team Providers Name Role Phone Ashanti TAMAYO, Volodymyr Braga Primary Care Physician En[place] [facility] [place](s): 08/18/20 - 09/17/20 [facility] Endocrinology and Diabetes [address] [place] [id number] Allergies, Adverse Reactions, Alerts Substance Reaction Severity Status NKA Active Medications aspirin 81 mg oral delayed release tablet 81 mg, By Mouth, Daily, Refills 0, Maintenance, 07/28/16 15:09:46 Start Date: 07/28/16 Status: Orderedatorvastatin 80 mg oral tablet = 80 mg, By Mouth, Daily at bedtime, # 30 tablet, 0 Refills, Maintenance, Tablet, Route to Pharmacy Electronically, [id number], [facility] Start Date: 07/28/16 Stop [...] Maintenance, 07/28/16 15:16:43, Route to Pharmacy Electronically, [id number], [facility] 3 Start Date: 07/28/16 Stop Date: 08/27/16 Status: OrderedNovoLOG 100 units/mL subcutaneous solution See Instructions, Subcutaneous Injection, infuse up to 60 units SC daily via an insulin pump. T1DM/E10.9, 2 vials needed due to infusion site change every 3 days, # 20 mL, 11 Refills, Maintenance, 10/11/17 13:26:06 EDT Start Date: 10/11/17 Stop Date: 10/06/18 Status: OrderedPen [place], 31 G x 5 mm BD Ultra Fine III See Instructions, # 100 each, Refills 2, Tot. Refills 2, Maintenance, use to inject basaglar daily. for T1DM/E10, 01/25/17 16:26:44, Compound Start Date: 01/25/17 Stop Date: 04/25/17 Status: OrderedPlavix 75 mg oral tablet 75 mg, By Mouth, Daily, # 30 tablet, Refills 0, Tot. Refills 0, Maintenance, 07/28/16 15:09:58, Route to Pharmacy Electronically, [id number], [facility] 3 Start Date: 07/28/16 Stop Date: 08/27/16 [...] Most recent to oldest [Reference Range]: 1 Height 180 cm (08/13/20 2:30 PM) Weight 71.0 kg (08/13/20 2:30 PM) Body Mass Index [18.5-24.99] 21.91 (08/13/20 2:30 PM) Social History Social History Type Response Smoking Status Former smoker entered on: 09/17/17 Sex
--- OUTSIDE RECORDS SUMMARY | 2022-06-13 12:17 | XMS_ITS | Continuity of Care Document ---
:1970 Author Organization [facility] Endocr[facility]ology and D dilan Address [address] [place] [address]- Care Team Providers Name Role Phone Not on Staff, PCP Primary Care Physician Unavailable Encounter [facility] [place] Date(s): 04/06/21 - 05/06/21 [facility] [address] [place] [id number] Allergies, Adverse Reactions, Alerts No Known Allergies Medications aspirin 81 mg oral delayed release tablet 81 mg, By Mouth, Daily, Refills 0, Maintenance, 07/28/16 15:09:46 Start Date: 07/28/16 Status: Orderedatorvastatin 80 mg oral tablet = 80 mg, By Mouth, Daily at bedtime, # 30 tablet, 0 Refills, Maintenance, Tablet, Route to Pharmacy Electronically, [id number], [facility] Start Date: 07/28/16 Stop [...] EDT, Height Start Date: 02/03/21 Status: OrderedDexcom Silver Wrapper Dexcom Silver Wrapper, See Instructions, # 1 each, Refills 1, [...] each, 5 Refills, Maintenance, 01/28/21 11:25:00 EDT, [facility] #[id number], Partial fill upon patient reque... Start Date: 01/28/21 Stop Date: 07/27/21 Status: Orderedmetoprolol 25 mg oral tablet 12.5 mg, 0.5, tablet, By Mouth, 2 times a day, use Metoprolol TARTRATE, # 30 tablet, Refills 0, Tot.Refills 0, Maintenance, 07/28/16 15:16:43, Route to Pharmacy Electronically, [id number], [facility] Start Date: 07/28/16 Stop Date: 08/27/16 Status: OrderedNovoLOG 100 units/mL subcutaneous solution See Instructions, Subcutaneous Injection, infuse up to 60 units SC daily via an insulin pump. T1DM/E10.9, 2 vials needed due to infusion site change every 3 days, # 20 mL, 11 Refills, Maintenance, 10/11/17 13:26:06 EDT Start Date: 10/11/17 Stop Date: 10/06/18 Status: OrderedPen [place], 31 G x 5 mm BD Ultra Fine III See Instructions, # 100 each, Refills 2, Tot. Refills 2, Maintenance, use to inject basaglar daily. for T1DM/E10, 01/25/17 16:26:44, Compound Start Date: 01/25/17 Stop Date: 04/25/17 Status: OrderedPlavix 75 mg oral tablet 75 mg, By Mouth, Daily, # 30 tablet, Refills 0, Tot. Refills 0, Maintenance, 07/28/16 15:09:58, Route to Pharmacy Electronically, [id number], [facility] Start Date: 07/28/16 Stop [...]
--- OUTSIDE RECORDS SUMMARY | 2022-06-13 12:17 | XMS_ITS | Continuity of Care Document ---
:1970 Author Organization [facility] Address [address] [place] [address]- Care Team Providers Name Role Phone Ashanti TAMAYO, Volodymyr Braga Primary Care Physician En[place] [facility] [place] Date(s): 01/28/21 - 02/27/21 [facility] [address] [place] [id number] Allergies, Adverse Reactions, Alerts Substance Reaction Severity Status NKA Active Medications aspirin 81 mg oral delayed release tablet 81 mg, By Mouth, Daily, Refills 0, Maintenance, 07/28/16 15:09:46 Start Date: 07/28/16 Status: Orderedatorvastatin 80 mg oral tablet = 80 mg, By Mouth, Daily at bedtime, # 30 tablet, 0 Refills, Maintenance, Tablet, Route to Pharmacy Electronically, [id number], [facility] Start Date: 07/28/16 Stop [...] EDT, Height Start Date: 02/03/21 Status: OrderedDexcom Mission Coordinator Dexcom Mission Coordinator, See Instructions, # 1 each, Refills 1, [...] each, 5 Refills, Maintenance, 01/28/21 11:25:00 EDT, [facility] #[id number], Partial fill upon patient reque... Start Date: 01/28/21 Stop Date: 07/27/21 Status: Orderedmetoprolol 25 mg oral tablet 12.5 mg, 0.5, tablet, By Mouth, 2 times a day, use Metoprolol TARTRATE, # 30 tablet, Refills 0, Tot.Refills 0, Maintenance, 07/28/16 15:16:43, Route to Pharmacy Electronically, [id number], [facility] Start Date: 07/28/16 Stop Date: 08/27/16 Status: OrderedNovoLOG 100 units/mL subcutaneous solution See Instructions, Subcutaneous Injection, infuse up to 60 units SC daily via an insulin pump. T1DM/E10.9, 2 vials needed due to infusion site change every 3 days, # 20 mL, 11 Refills, Maintenance, 10/11/17 13:26:06 EDT Start Date: 10/11/17 Stop Date: 10/06/18 Status: OrderedPen [place], 31 G x 5 mm BD Ultra Fine III See Instructions, # 100 each, Refills 2, Tot. Refills 2, Maintenance, use to inject basaglar daily. for T1DM/E10, 01/25/17 16:26:44, Compound Start Date: 01/25/17 Stop Date: 04/25/17 Status: OrderedPlavix 75 mg oral tablet 75 mg, By Mouth, Daily, # 30 tablet, Refills 0, Tot. Refills 0, Maintenance, 07/28/16 15:09:58, Route to Pharmacy Electronically, [id number], [facility] Start Date: 07/28/16 Stop [...]
--- OUTSIDE RECORDS SUMMARY | 2022-06-13 12:17 | XMS_ITS | Continuity of Care Document ---
:1970 Author Organization [facility] Endocr[facility]ology and D dilan Address [address] [place] [address]- Care Team Providers Name Role Phone Not on Staff, PCP Primary Care Physician Unavailable Encounter [facility] [place] Date(s): 07/29/21 - 08/28/21 [facility] Diabetes [address] [place] [id number] Allergies, Adverse Reactions, Alerts No Known Allergies Medications aspirin 81 mg oral delayed release tablet 81 mg, By Mouth, Daily, Refills 0, Maintenance, 07/28/16 15:09:46 Start Date: 07/28/16 Status: Orderedatorvastatin 80 mg oral tablet = 80 mg, By Mouth, Daily at bedtime, # 30 tablet, 0 Refills, Maintenance, Tablet, Route to Pharmacy Electronically, [id number], [facility] Start Date: 07/28/16 Stop Date: [...] EDT, Height Start Date: 02/03/21 Status: OrderedDexcom Bilingual Middle School Teacher Dexcom Bilingual Middle School Teacher, See Instructions, # 1 each, Refills 1, [...] each, 5 Refills, Maintenance, 10/07/21 11:25:00 EDT, [facility] #[id number], Partial fill upon patient reque... Start Date: 01/28/21 Stop Date: 07/27/21 Status: Orderedmetoprolol 25 mg oral tablet 12.5 mg, 0.5, tablet, By Mouth, 2 times a day, use Metoprolol TARTRATE, # 30 tablet, Refills 0, Tot.Refills 0, Maintenance, 07/28/16 15:16:43, Route to Pharmacy Electronically, [id number], [facility] Start Date: 07/28/16 Stop Date: 08/27/16 Status: OrderedNovoLOG 100 units/mL subcutaneous solution See Instructions, Subcutaneous Injection, infuse up to 60 units SC daily via an insulin pump. T1DM/E10.9, 2 vials needed due to infusion site change every 3 days, # 20 mL, 11 Refills, Maintenance, 10/11/17 13:26:06 EDT Start Date: 10/11/17 Stop Date: 10/06/18 Status: OrderedPen [place], 31 G x 5 mm BD Ultra Fine III See Instructions, # 100 each, Refills 2, Tot. Refills 2, Maintenance, use to inject basaglar daily. for T1DM/E10, 01/25/17 16:26:44, Compound Start Date: 01/25/17 Stop Date: 04/25/17 Status: OrderedPlavix 75 mg oral tablet 75 mg, By Mouth, Daily, # 30 tablet, Refills 0, Tot. Refills 0, Maintenance, 07/28/16 15:09:58, Route to Pharmacy Electronically, [id number], [facility] Start Date: 07/28/16 Stop Date: [...]
--- OUTSIDE RECORDS SUMMARY | 2022-06-13 12:17 | XMS_ITS | Continuity of Care Document ---
:1970 Author Organization [facility] Address [address] [place] [address]- Care Team Providers Name Role Phone Not on Staff, PCP Primary Care Physician Unavailable [place] [facility] [place] Date(s): 09/07/21 - 10/07/[address] [address]- Attending Physician: Ibeth Arnold Admitting Physician: Ibeth Arnold Referring Physician: trIbeth Allergies, Adverse Reactions, Alerts No Known Allergies Medications aspirin 81 mg oral delayed release tablet 81 mg, By Mouth, Daily, Refills 0, Maintenance, 07/28/16 15:09:46 Start Date: 07/28/16 Status: Orderedatorvastatin 80 mg oral tablet = 80 mg, By Mouth, Daily at bedtime, # 30 tablet, 0 Refills, Maintenance, Tablet, Route to Pharmacy Electronically, [id number], [facility] Start Date: 07/28/16 Stop [...] EDT, Compound Start Date: 10/11/17 Stop Date: 6/15/19 Status: Orderedcyproheptadine 4 mg oral tablet 4 [...] EDT, Height Start Date: 02/03/21 Status: OrderedDexcom Best Worker Dexcom Best Worker, See Instructions, # 1 each, Refills 1, [...] each, 5 Refills, Maintenance, 01/28/21 11:25:00 EDT[id number] Partial fill upon patient reque... Start Date: 01/28/21 Stop Date: 07/27/21 Status: Orderedmetoprolol 25 mg oral tablet 12.5 mg, 0.5, tablet, By Mouth, 2 times a day, use Metoprolol TARTRATE, # 30 tablet, Refills 0, Tot.Refills 0, Maintenance, 07/28/16 15:16:43, Route to Pharmacy Electronically, [id number], [facility] 3 Start Date: 07/28/16 Stop Date: 08/27/16 Status: OrderedNovoLOG 100 units/mL subcutaneous solution See Instructions, Subcutaneous Injection, infuse up to 60 units SC daily via an insulin pump. T1DM/E10.9, 2 vials needed due to infusion site change every 3 days, # 20 mL, 11 Refills, Maintenance, 10/11/17 13:26:06 EDT Start Date: 10/11/17 Stop Date: 10/06/18 Status: OrderedPen [place], 31 G x 5 mm BD Ultra Fine III See Instructions, # 100 each, Refills 2, Tot. Refills 2, Maintenance, use to inject basaglar daily. for T1DM/E10, 01/25/17 16:26:44, Compound Start Date: 01/25/17 Stop Date: 04/25/17 Status: OrderedPlavix 75 mg oral tablet 75 mg, By Mouth, Daily, # 30 tablet, Refills 0, Tot. Refills 0, Maintenance, 07/28/16 15:09:58, Route to Pharmacy Electronically, [id number], [facility] 3 Start Date: 07/28/16 Stop Date: [...]
--- OUTSIDE RECORDS SUMMARY | 2022-06-13 12:17 | XMS_ITS | Continuity of Care Document ---
:1970 Author Organization [facility] Address [address] [place] [address]- Care Team Providers Name Role Phone Ashanti TAMAYO, Volodymyr Braga Primary Care Physician Encounter [facility] [place] Date(s): 02/11/21 - 03/13/[address] [address]- Attending Physician: Ibeth Arnold Admitting Physician: AdmtrIbeth Referring Physician: Admtr, Ar8 Allergies, Adverse Reactions, Alerts Substance Reaction Severity Status NKA Active Medications aspirin 81 mg oral delayed release tablet 81 mg, By Mouth, Daily, Refills 0, Maintenance, 07/28/16 15:09:46 Start Date: 07/28/16 Status: Orderedatorvastatin 80 mg oral tablet = 80 mg, By Mouth, Daily at bedtime, # 30 tablet, 0 Refills, Maintenance, Tablet, Route to Pharmacy Electronically, [id number], [facility] Start Date: 07/28/16 Stop [...] EDT, Height Start Date: 02/03/21 Status: OrderedDexcom Commuter Pilot Dexcom Commuter Pilot, See Instructions, # 1 each, Refills 1, [...] each, 5 Refills, Maintenance, 01/28/21 11:25:00 EDT, [facility] #[id number], Partial fill upon patient reque... Start Date: 01/28/21 Stop Date: 07/27/21 Status: Orderedmetoprolol 25 mg oral tablet 12.5 mg, 0.5, tablet, By Mouth, 2 times a day, use Metoprolol TARTRATE, # 30 tablet, Refills 0, Tot.Refills 0, Maintenance, 07/28/16 15:16:43, Route to Pharmacy Electronically, [id number], [facility] Start Date: 07/28/16 Stop Date: 08/27/16 Status: OrderedNovoLOG 100 units/mL subcutaneous solution See Instructions, Subcutaneous Injection, infuse up to 60 units SC daily via an insulin pump. T1DM/E10.9, 2 vials needed due to infusion site change every 3 days, # 20 mL, 11 Refills, Maintenance, 10/11/17 13:26:06 EDT Start Date: 10/11/17 Stop Date: 10/06/18 Status: OrderedPen [place], 31 G x 5 mm BD Ultra Fine III See Instructions, # 100 each, Refills 2, Tot. Refills 2, Maintenance, use to inject basaglar daily. for T1DM/E10, 01/25/17 16:26:44, Compound Start Date: 01/25/17 Stop Date: 04/25/17 Status: OrderedPlavix 75 mg oral tablet 75 mg, By Mouth, Daily, # 30 tablet, Refills 0, Tot. Refills 0, Maintenance, 07/28/16 15:09:58, Route to Pharmacy Electronically, [id number], [facility] Start Date: 07/28/16 Stop [...]
--- OUTSIDE RECORDS SUMMARY | 2022-06-13 12:17 | XMS_ITS | Continuity of Care Document ---
:1970 Author Organization [facility] Address [address] [place] [address]- Care Team Providers Name Role Phone Román TAMAYO, Cesilia Agustin Primary Care Physician [place] [facility] [place] Date(s): 04/07/22 - 05/07/22 [facility]ocrinology and Diabetes [address] [place] [id number] Allergies, Adverse Reactions, Alerts No Known Allergies Medications aspirin 81 mg oral delayed release tablet 81 mg, By Mouth, Daily, Refills 0, Maintenance, 07/28/16 15:09:46 Start Date: 07/28/16 Status: Orderedatorvastatin 80 mg oral tablet = 80 mg, By Mouth, Daily at bedtime, # 30 tablet, 0 Refills, Maintenance, Tablet, Route to Pharmacy Electronically, [id number], [facility] Start Date: 07/28/16 Stop [...] EDT, Height Start Date: 02/15/22 Status: OrderedDexcom Scooper Dexcom Scooper, See Instructions, # 1 each, Refills 1, Tot. Refills 1, Maintenance, Dexcom ReceiverTo be use to monitor blood sugar for type 1 diabetes. dx 10.9, 02/03/21 15:33:00 EDT, Supply, 180, cm, 10/30/20 14:56:00 EDT, Height Start Date: 02/03/21 Status: OrderedFreestyle Lite Lancets See Instructions, # 150 each, Refills 11, Tot. Refills 11, Maintenance, e10.65, test blood glucose 5times daily, 30 dy supply, 05/02/22 9:03:00 EST, Supply, 180, cm, 04/12/22 15:34:00 EST, Height Start Date: 05/02/22 Status: OrderedFreestyle Lite Monitor See Instructions, # 1 each, Refills 0, Tot. Refills 0, Maintenance, e10.65, test blood glucose 5 times daily, 30 dy supply, 05/02/22 9:04:00 EST, Supply, 180, cm, 04/12/22 15:34:00 EST, Height Start Date: 05/02/22 Status: OrderedFreestyle Lite Test Strips See Instructions, # 150 each, Refills 11, Tot. Refills 11, Maintenance, e10.65, test blood glucose 5times daily, 30 dy supply, 05/02/22 9:04:00 EST, Supply, 180, cm, 04/12/22 15:34:00 EST, Height Start Date: 05/02/22 Status: OrderedGlucagon Emergency Kit See Instructions, # [...] mL, 11 Refills, Maintenance, 02/16/22 11:57:00 EDT, [facility] #[id number], Partial fill upon patient... Start Date: 02/16/22 [...] each, 5 Refills, Maintenance, 01/28/21 11:25:00 EDT, [facility] #[id number], Partial fill upon patient reque... Start Date: 01/28/21 Stop Date: 07/27/21 Status: Orderedmetoprolol 25 mg oral tablet 12.5 mg, 0.5, tablet, By Mouth, 2 times a day, use Metoprolol TARTRATE, # 30 tablet, Refills 0, Tot.Refills 0, Maintenance, 07/28/16 15:16:43, Route to Pharmacy Electronically, [id number], [facility] 3 Start Date: 07/28/16 Stop Date: 08/27/16 Status: OrderedNovoLOG 100 units/mL subcutaneous solution See Instructions, Subcutaneous Injection, infuse up to 60 units SC daily via an insulin pump. T1DM/E10.9, 2 vials needed due to infusion site change every 3 days, # 20 mL, 11 Refills, Maintenance, 05/05/22 10:54:00 EST, [facility]/pharmacy #[id number], 180, cm, 12... Start Date: 05/05/22 Stop Date: 04/30/23 Status: OrderedPen [place], 31 G x 5 mm BD Ultra Fine III See Instructions, # 100 each, Refills 2, Tot. Refills 2, Maintenance, use to inject basaglar daily. for T1DM/E10, 01/25/17 16:26:44, Compound Start Date: 01/25/17 Stop Date: 04/25/17 Status: OrderedPlavix 75 mg oral tablet 75 mg, By Mouth, Daily, # 30 tablet, Refills 0, Tot. Refills 0, Maintenance, 07/28/16 15:09:58, Route to Pharmacy Electronically, [id number], [facility] Start Date: 07/28/16 Stop [...] Team PersonnelName: Jose Luis Turner RN Position: S RN Member Role: Primary Care Nurse Name: Cesilia France MD Position: S Physician (General Medicine) Member Role: PCP Address: Address: [address] [place] [address] Name: Joselin Staton RN Position: [facility] RN Member Role: Primary Care Nurse Name: Patricia BARKER, Mally Position: [facility] Hospital Business Professor Member Role: Primary Care Nurse Name: Alondra Burgos Position: [facility] RN Member Role: Primary Care Nurse Name: Sofya Vallecillo RN Position: [facility] Onco RN Member Role: Primary Care Nurse Name: Britni Diop RN Position: [facility] RN Member Role: Primary Care Nurse Care Team Related PersonsName: SPIKE EVANS Address: home [address] [place] [address] Name: KASANDRA JACKSON Address: home [address] [place] [address] Name: ALONDRA TREVIÑO Address: home UNKNOWN [facility]
--- OUTSIDE RECORDS SUMMARY | 2022-06-13 12:17 | XMS_ITS | Continuity of Care Document ---
:1970 Author Organization [facility] Address [address] [place] [address]- Care Team Providers Name Role Phone Not on Staff, PCP Primary Care Physician Unavailable Encounter [facility] [place] Date(s): 04/21/21 - 05/21/[address] [address]- Attending Physician: Ibeth Arnold Admitting Physician: AdmtrIbeth Referring Physician: Admtr ArElieser Allergies, Adverse Reactions, Alerts No Known Allergies Medications aspirin 81 mg oral delayed release tablet 81 mg, By Mouth, Daily, Refills 0, Maintenance, 07/28/16 15:09:46 Start Date: 07/28/16 Status: Orderedatorvastatin 80 mg oral tablet = 80 mg, By Mouth, Daily at bedtime, # 30 tablet, 0 Refills, Maintenance, Tablet, Route to Pharmacy Electronically, [id number], [facility] Start Date: 07/28/16 [...] EDT, Height Start Date: 02/03/21 Status: OrderedDexcom Handle Sewer Dexcom Handle Sewer, See Instructions, # 1 each, Refills 1, [...] each, 5 Refills, Maintenance, 01/28/21 11:25:00 EDT, [facility] #[id number], Partial fill upon patient reque... Start Date: 01/28/21 Stop Date: 07/27/21 Status: Orderedmetoprolol 25 mg oral tablet 12.5 mg, 0.5, tablet, By Mouth, 2 times a day, use Metoprolol TARTRATE, # 30 tablet, Refills 0, Tot.Refills 0, Maintenance, 07/28/16 15:16:43, Route to Pharmacy Electronically, [id number], [facility] [place] [facility] 3 Start Date: 07/28/16 Stop Date: 08/27/16 Status: OrderedNovoLOG 100 units/mL subcutaneous solution See Instructions, Subcutaneous Injection, infuse up to 60 units SC daily via an insulin pump. T1DM/E10.9, 2 vials needed due to infusion site change every 3 days, # 20 mL, 11 Refills, Maintenance, 10/11/17 13:26:06 EDT Start Date: 10/11/17 Stop Date: 10/06/18 Status: OrderedPen [place], 31 G x 5 mm BD Ultra Fine III See Instructions, # 100 each, Refills 2, Tot. Refills 2, Maintenance, use to inject basaglar daily. for T1DM/E10, 01/25/17 16:26:44, Compound Start Date: 01/25/17 Stop Date: 04/25/17 Status: OrderedPlavix 75 mg oral tablet 75 mg, By Mouth, Daily, # 30 tablet, Refills 0, Tot. Refills 0, Maintenance, 07/28/16 15:09:58, Route to Pharmacy Electronically, [id number], [facility] 3 Start Date: 07/28/16 Stop Date: 08/27/16 Status: OrderedTylenol 325 mg oral tablet 650 mg, By Mouth, Every 6 hours, PRN, Refills 0, Maintenance, Pain , Mild, 04/06/17 15:09:26 Start Date: 07/28/16 Status: Ordered Problem List Condition Effective Dates Status Health Status Informant Crohn's disease(Confirmed) Active Hyperlipidemia(Confirmed) Active 3-vessel coronary artery Active disease(Confirmed)1 T1DM (type 1 diabetes Active mellitus)(Confirmed) 1s/p quadruple Bypass in June 2016 Social History Social History Type Response Smoking Status Former smoker entered on: 09/17/17 Sex
--- OUTSIDE RECORDS SUMMARY | 2022-06-13 12:17 | XMS_ITS | Continuity of Care Document ---
:1970 Author Organization [facility]ocrinology and D dilan Address [address] [place] [address]- Care Team Providers Name Role Phone Not on Staff, PCP Primary Care Physician Unavailable [place] [facility] [place] 09/24/21 [facility] Diabetes [address] [place] [id number] Allergies, Adverse Reactions, Alerts No Known Allergies Medications aspirin 81 mg oral delayed release tablet 81 mg, By Mouth, Daily, Refills 0, Maintenance, 07/28/16 15:09:46 Start Date: 07/28/16 Status: Orderedatorvastatin 80 mg oral tablet = 80 mg, By Mouth, Daily at bedtime, # 30 tablet, 0 Refills, Maintenance, Tablet, Route to Pharmacy Electronically, [id number], [facility] Start Date: [...] EDT, Height Start Date: 02/03/21 Status: OrderedDexcom Buyer Assistant Dexcom Buyer Assistant, See Instructions, # 1 each, Refills 1, [...] each, 5 Refills, Maintenance, 10/07/21 11:25:00 EDT, [facility] #[id number], Partial fill upon patient reque... Start Date: 01/28/21 Stop Date: 07/27/21 Status: Orderedmetoprolol 25 mg oral tablet 12.5 mg, 0.5, tablet, By Mouth, 2 times a day, use Metoprolol TARTRATE, # 30 tablet, Refills 0, Tot.Refills 0, Maintenance, 07/28/16 15:16:43, Route to Pharmacy Electronically, [id number], [facility] Start Date: 07/28/16 Stop Date: 08/27/16 Status: OrderedNovoLOG 100 units/mL subcutaneous solution See Instructions, Subcutaneous Injection, infuse up to 60 units SC daily via an insulin pump. T1DM/E10.9, 2 vials needed due to infusion site change every 3 days, # 20 mL, 11 Refills, Maintenance, 10/11/17 13:26:06 EDT Start Date: 10/11/17 Stop Date: 10/06/18 Status: OrderedPen [place], 31 G x 5 mm BD Ultra Fine III See Instructions, # 100 each, Refills 2, Tot. Refills 2, Maintenance, use to inject basaglar daily. for T1DM/E10, 01/25/17 16:26:44, Compound Start Date: 01/25/17 Stop Date: 04/25/17 Status: OrderedPlavix 75 mg oral tablet 75 mg, By Mouth, Daily, # 30 tablet, Refills 0, Tot. Refills 0, Maintenance, 07/28/16 15:09:58, Route to Pharmacy Electronically, [id number], [facility] Start Date: [...]
--- OUTSIDE RECORDS SUMMARY | 2022-06-13 12:17 | XMS_ITS | Continuity of Care Document ---
:1970 Author Organization [facility] Endocrinology and D dilan Address [address] [place] [id number]- Care Team Providers Name Role Phone Not on Staff, PCP Primary Care Physician Unavailable Encounter [facility] [place] Date(s): 08/30/21 - 09/29/21 [facility] Endocrinology and Diabetes [address] [place] [id number] Allergies, Adverse Reactions, Alerts No Known Allergies Medications aspirin 81 mg oral delayed release tablet 81 mg, By Mouth, Daily, Refills 0, Maintenance, 07/28/16 15:09:46 Start Date: 07/28/16 Status: Orderedatorvastatin 80 mg oral tablet = 80 mg, By Mouth, Daily at bedtime, # 30 tablet, 0 Refills, Maintenance, Tablet, Route to Pharmacy Electronically, [id number], [facility] Start Date: 07/28/16 Stop [...] EDT, Height Start Date: 02/03/21 Status: OrderedDexcom Adult Services Librarian Dexcom Adult Services Librarian, See Instructions, # 1 each, Refills 1, [...] each, 5 Refills, Maintenance, 10/07/21 11:25:00 EDT, [facility] #[id number], Partial fill upon patient reque... Start Date: 01/28/21 Stop Date: 07/27/21 Status: Orderedmetoprolol 25 mg oral tablet 12.5 mg, 0.5, tablet, By Mouth, 2 times a day, use Metoprolol TARTRATE, # 30 tablet, Refills 0, Tot.Refills 0, Maintenance, 07/28/16 15:16:43, Route to Pharmacy Electronically, [id number], [facility] Start Date: 07/28/16 Stop Date: 08/27/16 Status: OrderedNovoLOG 100 units/mL subcutaneous solution See Instructions, Subcutaneous Injection, infuse up to 60 units SC daily via an insulin pump. T1DM/E10.9, 2 vials needed due to infusion site change every 3 days, # 20 mL, 11 Refills, Maintenance, 10/11/17 13:26:06 EDT Start Date: 10/11/17 Stop Date: 10/06/18 Status: OrderedPen [place], 31 G x 5 mm BD Ultra Fine III See Instructions, # 100 each, Refills 2, Tot. Refills 2, Maintenance, use to inject basaglar daily. for T1DM/E10, 01/25/17 16:26:44, Compound Start Date: 01/25/17 Stop Date: 04/25/17 Status: OrderedPlavix 75 mg oral tablet 75 mg, By Mouth, Daily, # 30 tablet, Refills 0, Tot. Refills 0, Maintenance, 07/28/16 15:09:58, Route to Pharmacy Electronically, [id number], [facility] Start Date: 07/28/16 Stop [...]
--- OUTSIDE RECORDS SUMMARY | 2022-06-13 12:17 | XMS_ITS | Continuity of Care Document ---
:1970 Author Organization [facility] Address [address] [place] [phone]- Care Team Providers Name Role Phone Ashanti TAMAYO, Volodymyr Braga Primary Care Physician Encounter [facility] [place] Date(s): 02/03/21 - 03/05/21 [facility] Endocrinology and Diabetes [address] [place] [id number] Allergies, Adverse Reactions, Alerts Substance Reaction Severity Status NKA Active Medications aspirin 81 mg oral delayed release tablet 81 mg, By Mouth, Daily, Refills 0, Maintenance, 07/28/16 15:09:46 Start Date: 07/28/16 Status: Orderedatorvastatin 80 mg oral tablet = 80 mg, By Mouth, Daily at bedtime, # 30 tablet, 0 Refills, Maintenance, Tablet, Route to Pharmacy Electronically, [id number], [facility] Start Date: 07/28/16 [...] EDT, Height Start Date: 02/03/21 Status: OrderedDexcom Face Cleaner Dexcom Face Cleaner, See Instructions, # 1 each, Refills 1, [...] each, 5 Refills, Maintenance, 01/28/21 11:25:00 EDT, [facility] #[id number], Partial fill upon patient reque... Start Date: 01/28/21 Stop Date: 07/27/21 Status: Orderedmetoprolol 25 mg oral tablet 12.5 mg, 0.5, tablet, By Mouth, 2 times a day, use Metoprolol TARTRATE, # 30 tablet, Refills 0, Tot.Refills 0, Maintenance, 07/28/16 15:16:43, Route to Pharmacy Electronically, [id number], [facility] Start Date: 07/28/16 Stop Date: 08/27/16 Status: OrderedNovoLOG 100 units/mL subcutaneous solution See Instructions, Subcutaneous Injection, infuse up to 60 units SC daily via an insulin pump. T1DM/E10.9, 2 vials needed due to infusion site change every 3 days, # 20 mL, 11 Refills, Maintenance, 10/11/17 13:26:06 EDT Start Date: 10/11/17 Stop Date: 10/06/18 Status: OrderedPen [place], 31 G x 5 mm BD Ultra Fine III See Instructions, # 100 each, Refills 2, Tot. Refills 2, Maintenance, use to inject basaglar daily. for T1DM/E10, 01/25/17 16:26:44, Compound Start Date: 01/25/17 Stop Date: 04/25/17 Status: OrderedPlavix 75 mg oral tablet 75 mg, By Mouth, Daily, # 30 tablet, Refills 0, Tot. Refills 0, Maintenance, 07/28/16 15:09:58, Route to Pharmacy Electronically, [id number], [facility] Start Date: 07/28/16 [...]
--- OUTSIDE RECORDS SUMMARY | 2022-06-13 12:17 | XMS_ITS | Continuity of Care Document ---
:1970 Author Organization [facility] Address [address] [place] [phone]- Care Team Providers Name Role Phone Ashanti TAMAYO, Volodymyr Braga Primary Care Physician Encounter [facility] [place] Date(s): 03/03/21 - 04/02/21 [facility] Endocrinology and Diabetes [address] [place] [id number] Allergies, Adverse Reactions, Alerts Substance Reaction Severity Status NKA Active Medications aspirin 81 mg oral delayed release tablet 81 mg, By Mouth, Daily, Refills 0, Maintenance, 07/28/16 15:09:46 Start Date: 07/28/16 Status: Orderedatorvastatin 80 mg oral tablet = 80 mg, By Mouth, Daily at bedtime, # 30 tablet, 0 Refills, Maintenance, Tablet, Route to Pharmacy Electronically, [id number], [facility] Start Date: 07/28/16 [...] EDT, Height Start Date: 02/03/21 Status: OrderedDexcom Acquisition Advisor Dexcom Acquisition Advisor, See Instructions, # 1 each, Refills 1, [...] each, 5 Refills, Maintenance, 01/28/21 11:25:00 EDT, [facility] #[id number], Partial fill upon patient reque... Start Date: 01/28/21 Stop Date: 07/27/21 Status: Orderedmetoprolol 25 mg oral tablet 12.5 mg, 0.5, tablet, By Mouth, 2 times a day, use Metoprolol TARTRATE, # 30 tablet, Refills 0, Tot.Refills 0, Maintenance, 07/28/16 15:16:43, Route to Pharmacy Electronically, [id number], [facility] Start Date: 07/28/16 Stop Date: 08/27/16 Status: OrderedNovoLOG 100 units/mL subcutaneous solution See Instructions, Subcutaneous Injection, infuse up to 60 units SC daily via an insulin pump. T1DM/E10.9, 2 vials needed due to infusion site change every 3 days, # 20 mL, 11 Refills, Maintenance, 10/11/17 13:26:06 EDT Start Date: 10/11/17 Stop Date: 10/06/18 Status: OrderedPen [place], 31 G x 5 mm BD Ultra Fine III See Instructions, # 100 each, Refills 2, Tot. Refills 2, Maintenance, use to inject basaglar daily. for T1DM/E10, 01/25/17 16:26:44, Compound Start Date: 01/25/17 Stop Date: 04/25/17 Status: OrderedPlavix 75 mg oral tablet 75 mg, By Mouth, Daily, # 30 tablet, Refills 0, Tot. Refills 0, Maintenance, 07/28/16 15:09:58, Route to Pharmacy Electronically, [id number], [facility] Start Date: 07/28/16 [...]
--- OUTSIDE RECORDS SUMMARY | 2022-06-13 12:17 | XMS_ITS | Continuity of Care Document ---
:1970 Author Organization [facility] Address [address] [place] [phone]- Care Team Providers Name Role Phone Ashanti TAMAYO, Volodymyr Braga Primary Care Physician Encounter [facility] [place] Date(s): 02/03/21 - 03/05/21 [facility] Endocrinology and Diabetes [address] [place] [id number] Allergies, Adverse Reactions, Alerts Substance Reaction Severity Status NKA Active Medications aspirin 81 mg oral delayed release tablet 81 mg, By Mouth, Daily, Refills 0, Maintenance, 07/28/16 15:09:46 Start Date: 07/28/16 Status: Orderedatorvastatin 80 mg oral tablet = 80 mg, By Mouth, Daily at bedtime, # 30 tablet, 0 Refills, Maintenance, Tablet, Route to Pharmacy Electronically, [id number], [facility] Start Date: 07/28/16 Stop [...] EDT, Height Start Date: 02/03/21 Status: OrderedDexcom Code Enforcement Officer Dexcom Code Enforcement Officer, See Instructions, # 1 each, Refills 1, [...] each, 5 Refills, Maintenance, 01/28/21 11:25:00 EDT, [facility] #[id number], Partial fill upon patient reque... Start Date: 01/28/21 Stop Date: 07/27/21 Status: Orderedmetoprolol 25 mg oral tablet 12.5 mg, 0.5, tablet, By Mouth, 2 times a day, use Metoprolol TARTRATE, # 30 tablet, Refills 0, Tot.Refills 0, Maintenance, 07/28/16 15:16:43, Route to Pharmacy Electronically, [id number], [facility] Start Date: 07/28/16 Stop Date: 08/27/16 Status: OrderedNovoLOG 100 units/mL subcutaneous solution See Instructions, Subcutaneous Injection, infuse up to 60 units SC daily via an insulin pump. T1DM/E10.9, 2 vials needed due to infusion site change every 3 days, # 20 mL, 11 Refills, Maintenance, 10/11/17 13:26:06 EDT Start Date: 10/11/17 Stop Date: 10/06/18 Status: OrderedPen [place], 31 G x 5 mm BD Ultra Fine III See Instructions, # 100 each, Refills 2, Tot. Refills 2, Maintenance, use to inject basaglar daily. for T1DM/E10, 01/25/17 16:26:44, Compound Start Date: 01/25/17 Stop Date: 04/25/17 Status: OrderedPlavix 75 mg oral tablet 75 mg, By Mouth, Daily, # 30 tablet, Refills 0, Tot. Refills 0, Maintenance, 07/28/16 15:09:58, Route to Pharmacy Electronically, [id number], [facility] Start Date: 07/28/16 Stop [...]
--- OUTSIDE RECORDS SUMMARY | 2022-06-13 12:17 | XMS_ITS | Continuity of Care Document ---
:1970 Author Organization [facility] Address [address] [place] [address]- Care Team Providers Name Role Phone Ashanti TAMAYO, Volodymyr Braga Primary Care Physician Encounter [facility] [place] Date(s): 08/13/20 - 09/12/[address] [address]- Attending Physician: Ibeth Arnold Admitting Physician: AdmtrIbeth [...] Refills, Maintenance, Tablet, Route to Pharmacy Electronically, [id number], [facility] Start Date: 07/28/16 Stop [...] Maintenance, 07/28/16 15:16:43, Route to Pharmacy Electronically, [id number], [facility] 3 Start Date: 07/28/16 Stop Date: 08/27/16 Status: OrderedNovoLOG 100 units/mL subcutaneous solution See Instructions, Subcutaneous Injection, infuse up to 60 units SC daily via an insulin pump. T1DM/E10.9, 2 vials needed due to infusion site change every 3 days, # 20 mL, 11 Refills, Maintenance, 10/11/17 13:26:06 EDT Start Date: 10/11/17 Stop Date: 10/06/18 Status: OrderedPen [place], 31 G x 5 mm BD Ultra Fine III See Instructions, # 100 each, Refills 2, Tot. Refills 2, Maintenance, use to inject basaglar daily. for T1DM/E10, 01/25/17 16:26:44, Compound Start Date: 01/25/17 Stop Date: 04/25/17 Status: OrderedPlavix 75 mg oral tablet 75 mg, By Mouth, Daily, # 30 tablet, Refills 0, Tot. Refills 0, Maintenance, 07/28/16 15:09:58, Route to Pharmacy Electronically, [id number], [facility] Start Date: 07/28/16 Stop Date: [...]
--- OUTSIDE RECORDS SUMMARY | 2022-06-13 12:17 | XMS_ITS | Continuity of Care Document ---
:1970 Author Organization [facility] Address [address] [place] [address]- Care Team Providers Name Role Phone Román TAMAYO, Cesilia Agustin Primary Care Physician Encounter [facility] [place] Date(s): 03/07/22 - 04/06/22 [facility] Endocrinology and Diabetes [address] [place] [id number] Allergies, Adverse Reactions, Alerts No Known Allergies Medications aspirin 81 mg oral delayed release tablet 81 mg, By Mouth, Daily, Refills 0, Maintenance, 07/28/16 15:09:46 Start Date: 07/28/16 Status: Orderedatorvastatin 80 mg oral tablet = 80 mg, By Mouth, Daily at bedtime, # 30 tablet, 0 Refills, Maintenance, Tablet, Route to Pharmacy Electronically, [id number], [facility] Start Date: 07/28/16 Stop [...] EDT, Height Start Date: 02/15/22 Status: OrderedDexcom Billet Grinder Dexcom Billet Grinder, See Instructions, # 1 each, Refills 1, [...] mL, 11 Refills, Maintenance, 02/16/22 11:57:00 EDT, [facility] #[id number], Partial fill upon patient... Start Date: 02/16/22 [...] each, 5 Refills, Maintenance, 01/28/21 11:25:00 EDT, [facility] #[id number], Partial fill upon patient reque... Start Date: 01/28/21 Stop Date: 07/27/21 Status: Orderedmetoprolol 25 mg oral tablet 12.5 mg, 0.5, tablet, By Mouth, 2 times a day, use Metoprolol TARTRATE, # 30 tablet, Refills 0, Tot.Refills 0, Maintenance, 07/28/16 15:16:43, Route to Pharmacy Electronically, [id number], [facility] 3 Start Date: 07/28/16 Stop Date: 08/27/16 Status: OrderedNovoLOG 100 units/mL subcutaneous solution See Instructions, Subcutaneous Injection, infuse up to 60 units SC daily via an insulin pump. T1DM/E10.9, 2 vials needed due to infusion site change every 3 days, # 20 mL, 11 Refills, Maintenance, 10/11/17 13:26:06 EDT Start Date: 10/11/17 Stop Date: 10/06/18 Status: OrderedPen [place], 31 G x 5 mm BD Ultra Fine III See Instructions, # 100 each, Refills 2, Tot. Refills 2, Maintenance, use to inject basaglar daily. for T1DM/E10, 01/25/17 16:26:44, Compound Start Date: 01/25/17 Stop Date: 04/25/17 Status: OrderedPlavix 75 mg oral tablet 75 mg, By Mouth, Daily, # 30 tablet, Refills 0, Tot. Refills 0, Maintenance, 07/28/16 15:09:58, Route to Pharmacy Electronically, [id number], [facility] Start Date: 07/28/16 Stop [...] Team PersonnelName: Jose Luis Turner RN Position: [facility] RN Member Role: Primary Care Nurse Name: Cesilia France MD Position: [facility] Physician (General Medicine) Member Role: PCP Address: Address: [address] [place] [address] Name: Joselin Staton RN Position: [facility] RN Member Role: Primary Care Nurse Name: Mally Gomez RN Position: [facility] [address] Service Member Role: Primary Care Nurse Name: Alondra Burgos Position: [facility] RN Member Role: Primary Care Nurse Name: Sofya Vallecillo RN Position: [facility] [place] RN Member Role: Primary Care Nurse Name: Britni Diop RN Position: [facility] RN Member Role: Primary Care Nurse Care Team Related PersonsName: SPIKE EVANS Address: home [address] [address] Name: KASANDRA JACKSON Address: home [address] [place] [address] Name: ALONDRA TREVIÑO Address: home UNKNOWN [facility]
--- OUTSIDE RECORDS SUMMARY | 2022-06-13 12:17 | XMS_ITS | Continuity of Care Document ---
:1970 Author Organization [facility] Address [address] [place] [id number]- Care Team Providers Name Role Phone Román TAMAYO, Cesilia Agustin Primary Care Physician Encounter [facility] [place] Date(s): 06/30/20 - 07/30/20 [facility] Endocrinology and Diabetes [address] [place] [id number] Allergies, Adverse Reactions, Alerts Substance Reaction Severity Status NKA Active Medications aspirin 81 mg oral delayed release tablet 81 mg, By Mouth, Daily, Refills 0, Maintenance, 07/28/16 15:09:46 Start Date: 07/28/16 Status: Orderedatorvastatin 80 mg oral tablet = 80 mg, By Mouth, Daily at bedtime, # 30 tablet, 0 Refills, Maintenance, Tablet, Route to Pharmacy Electronically, [id number], [facility] Start Date: 07/28/16 Stop [...] Maintenance, 07/28/16 15:16:43, Route to Pharmacy Electronically, [id number], [facility] 3 Start Date: 07/28/16 Stop Date: 08/27/16 Status: OrderedNovoLOG 100 units/mL subcutaneous solution See Instructions, Subcutaneous Injection, infuse up to 60 units SC daily via an insulin pump. T1DM/E10.9, 2 vials needed due to infusion site change every 3 days, # 20 mL, 11 Refills, Maintenance, 10/11/17 13:26:06 EDT Start Date: 10/11/17 Stop Date: 10/06/18 Status: OrderedPen [place], 31 G x 5 mm BD Ultra Fine III See Instructions, # 100 each, Refills 2, Tot. Refills 2, Maintenance, use to inject basaglar daily. for T1DM/E10, 01/25/17 16:26:44, Compound Start Date: 01/25/17 Stop Date: 04/25/17 Status: OrderedPlavix 75 mg oral tablet 75 mg, By Mouth, Daily, # 30 tablet, Refills 0, Tot. Refills 0, Maintenance, 07/28/16 15:09:58, Route to Pharmacy Electronically, [id number], [facility] 3 Start Date: 07/28/16 Stop [...]
--- OUTSIDE RECORDS SUMMARY | 2022-06-13 12:17 | XMS_ITS | Continuity of Care Document ---
:1970 Author Organization [facility] Address [address] [place] [phone]- Care Team Providers Name Role Phone Ashanti TAMAYO, Volodymyr Braga Primary Care Physician Encounter [facility] [place] Date(s): 03/15/21 - 04/14/21 [facility] Endocrinology and Diabetes [address] [place] [id number] Allergies, Adverse Reactions, Alerts Substance Reaction Severity Status NKA Active Medications aspirin 81 mg oral delayed release tablet 81 mg, By Mouth, Daily, Refills 0, Maintenance, 07/28/16 15:09:46 Start Date: 07/28/16 Status: Orderedatorvastatin 80 mg oral tablet = 80 mg, By Mouth, Daily at bedtime, # 30 tablet, 0 Refills, Maintenance, Tablet, Route to Pharmacy Electronically, [id number], [facility] Start Date: 07/28/16 Stop [...] EDT, Height Start Date: 02/03/21 Status: OrderedDexcom Change Agent Dexcom Change Agent, See Instructions, # 1 each, Refills 1, [...] each, 5 Refills, Maintenance, 01/28/21 11:25:00 EDT, [facility] #[id number], Partial fill upon patient reque... Start Date: 01/28/21 Stop Date: 07/27/21 Status: Orderedmetoprolol 25 mg oral tablet 12.5 mg, 0.5, tablet, By Mouth, 2 times a day, use Metoprolol TARTRATE, # 30 tablet, Refills 0, Tot.Refills 0, Maintenance, 07/28/16 15:16:43, Route to Pharmacy Electronically, [id number], [facility] Start Date: 07/28/16 Stop Date: 08/27/16 Status: OrderedNovoLOG 100 units/mL subcutaneous solution See Instructions, Subcutaneous Injection, infuse up to 60 units SC daily via an insulin pump. T1DM/E10.9, 2 vials needed due to infusion site change every 3 days, # 20 mL, 11 Refills, Maintenance, 10/11/17 13:26:06 EDT Start Date: 10/11/17 Stop Date: 10/06/18 Status: OrderedPen [place], 31 G x 5 mm BD Ultra Fine III See Instructions, # 100 each, Refills 2, Tot. Refills 2, Maintenance, use to inject basaglar daily. for T1DM/E10, 01/25/17 16:26:44, Compound Start Date: 01/25/17 Stop Date: 04/25/17 Status: OrderedPlavix 75 mg oral tablet 75 mg, By Mouth, Daily, # 30 tablet, Refills 0, Tot. Refills 0, Maintenance, 07/28/16 15:09:58, Route to Pharmacy Electronically, [id number], [facility] Start Date: 07/28/16 Stop Date: 08/27/16 Status: OrderedTylenol 325 mg oral tablet 650 mg, By Mouth, Every 6 hours, PRN, Refills 0, Maintenance, Pain , Mild, 07/28/16 15:09:26 Start Date: 4/6/17 Status: Ordered Problem List Condition Effective Dates Status Health Status Informant Crohn's disease(Confirmed) Active Hyperlipidemia(Confirmed) Active 3-vessel coronary artery Active disease(Confirmed)1 T1DM (type 1 diabetes Active mellitus)(Confirmed) 1s/p quadruple Bypass in June 2016 Social History Social History Type Response Smoking Status Former smoker entered on: 09/17/17 Sex
--- OUTSIDE RECORDS SUMMARY | 2022-06-13 12:17 | XMS_ITS | Continuity of Care Document ---
:1970 Author Organization [facility]ology [facility] Address [address] [place] [phone]- Care Team Providers Name Role Phone Román TAMAYO, Cesilia Agustni Primary Care Physician Encounter [facility] Date(s): 03/24/22 - 04/23/22 [facility] Endocrinology and Diabetes [address] [place] [id number] Allergies, Adverse Reactions, Alerts No Known Allergies Medications aspirin 81 mg oral delayed release tablet 81 mg, By Mouth, Daily, Refills 0, Maintenance, 07/28/16 15:09:46 Start Date: 07/28/16 Status: Orderedatorvastatin 80 mg oral tablet = 80 mg, By Mouth, Daily at bedtime, # 30 tablet, 0 Refills, Maintenance, Tablet, Route to Pharmacy Electronically, [id number], [facility] Start Date: 07/28/16 [...] EDT, Height Start Date: 02/15/22 Status: OrderedDexcom Airline Pilot Flight Instructor Dexcom Airline Pilot Flight Instructor, See Instructions, # 1 each, Refills 1, [...] mL, 11 Refills, Maintenance, 02/16/22 11:57:00 EDT, [facility]/pharmacy #[id number], Partial fill upon patient... Start Date: 02/16/22 [...] each, 5 Refills, Maintenance, 01/28/21 11:25:00 EDT, [facility] #[id number], Partial fill upon patient reque... Start Date: 01/28/21 Stop Date: 07/27/21 Status: Orderedmetoprolol 25 mg oral tablet 12.5 mg, 0.5, tablet, By Mouth, 2 times a day, use Metoprolol TARTRATE, # 30 tablet, Refills 0, Tot.Refills 0, Maintenance, 07/28/16 15:16:43, Route to Pharmacy Electronically, [id number], [facility] Start Date: 07/28/16 Stop Date: 08/27/16 Status: OrderedNovoLOG 100 units/mL subcutaneous solution See Instructions, Subcutaneous Injection, infuse up to 60 units SC daily via an insulin pump. T1DM/E10.9, 2 vials needed due to infusion site change every 3 days, # 20 mL, 11 Refills, Maintenance, 10/11/17 13:26:06 EDT Start Date: 10/11/17 Stop Date: 10/06/18 Status: OrderedPen [place], 31 G x 5 mm BD Ultra Fine III See Instructions, # 100 each, Refills 2, Tot. Refills 2, Maintenance, use to inject basaglar daily. for T1DM/E10, 01/25/17 16:26:44, Compound Start Date: 01/25/17 Stop Date: 04/25/17 Status: OrderedPlavix 75 mg oral tablet 75 mg, By Mouth, Daily, # 30 tablet, Refills 0, Tot. Refills 0, Maintenance, 07/28/16 15:09:58, Route to Pharmacy Electronically, [id number], [facility] Start Date: 07/28/16 [...] Team PersonnelName: Jose Luis Turner RN Position: [facility] RN Member Role: Primary Care Nurse Name: Román TAMAYO, Cesilia Agustin Position: [facility] Physician (General Medicine) Member Role: PCP Address: Address: [address] [place] [address] Name: Joselin Staton RN Position: [facility] RN Member Role: Primary Care Nurse Name: Mally Gomez RN Position: [facility] Hospital Char Filter Operator Helper Member Role: Primary Care Nurse Name: Alondra Burgos Position: [facility] RN Member Role: Primary Care Nurse Name: Sofya Vallecillo RN Position: [facility] [place] RN Member Role: Primary Care Nurse Name: Britni Diop RN Position: [facility] RN Member Role: Primary Care Nurse Care Team Related PersonsName: NATHAN SPIKE Address: home [address] [place] [phone] Name: KASANDRA JACKSON Address: home [address] [place] [address] Name: ALONDRA TREVIÑO Address: home UNKNOWN [facility]
--- OUTSIDE RECORDS SUMMARY | 2022-06-13 12:17 | XMS_ITS | Continuity of Care Document ---
:1970 Author Organization [facility] Address [address] [place] [phone]- Care Team Providers Name Role Phone Román TAMAYO, Cesilia Agustin Primary Care Physician [place] [facility] [place] - 05/26/22 [facility] Endocrinology and Diabetes [address] [place] [id number] Allergies, Adverse Reactions, Alerts No Known Allergies Medications aspirin 81 mg oral delayed release tablet 81 mg, By Mouth, Daily, Refills 0, Maintenance, 07/28/16 15:09:46 Start Date: 07/28/16 Status: Orderedatorvastatin 80 mg oral tablet = 80 mg, By Mouth, Daily at bedtime, # 30 tablet, 0 Refills, Maintenance, Tablet, Route to Pharmacy Electronically, [id number], [facility] Start Date: 07/28/16 Stop [...] EDT, Height Start Date: 02/15/22 Status: OrderedDexcom Rehab Aid Dexcom Rehab Aid, See Instructions, # 1 each, Refills 1, [...] mL, 11 Refills, Maintenance, 02/16/22 11:57:00 EDT, [facility]/pharmacy #[id number], Partial fill upon patient... Start Date: 02/16/22 [...] each, 5 Refills, Maintenance, 01/28/21 11:25:00 EDT, [facility][id number], Partial fill upon patient reque... Start Date: 01/28/21 Stop Date: 07/27/21 Status: Orderedmetoprolol 25 mg oral tablet 12.5 mg, 0.5, tablet, By Mouth, 2 times a day, use Metoprolol TARTRATE, # 30 tablet, Refills 0, Tot.Refills 0, Maintenance, 07/28/16 15:16:43, Route to Pharmacy Electronically, [id number], [facility] 3 Start Date: 07/28/16 Stop Date: 08/27/16 Status: OrderedNovoLOG 100 units/mL subcutaneous solution See Instructions, Subcutaneous Injection, infuse up to 60 units SC daily via an insulin pump. T1DM/E10.9, 2 vials needed due to infusion site change every 3 days, # 20 mL, 11 Refills, Maintenance, 05/05/22 10:54:00 EST, [facility]/pharmacy #[id number], 180, cm, 12... Start Date: 05/05/22 Stop Date: 04/30/23 Status: OrderedPen [place], 31 G x 5 mm BD Ultra Fine III See Instructions, # 100 each, Refills 2, Tot. Refills 2, Maintenance, use to inject basaglar daily. for T1DM/E10, 01/25/17 16:26:44, Compound Start Date: 01/25/17 Stop Date: 04/25/17 Status: OrderedPlavix 75 mg oral tablet 75 mg, By Mouth, Daily, # 30 tablet, Refills 0, Tot. Refills 0, Maintenance, 07/28/16 15:09:58, Route to Pharmacy Electronically, [id number], [facility] Start Date: 07/28/16 Stop [...] (General Medicine) Member Role: PCP Address: Address: [address] [place] [address] Name: Joselin Staton RN Position: [facility] RN Member Role: Primary Care Nurse Name: Mally Gomez RN Position: [facility] Hospital Mixing Machine Tender Member Role: Primary Care Nurse Name: Alondra Burgos Position: [facility] RN Member Role: Primary Care Nurse Name: Sofya Vallecillo RN Position: [facility] Onco RN Member Role: Primary Care Nurse Name: Britni Diop RN Position: [facility] RN Member Role: Primary Care Nurse Care Team Related PersonsName: SPIKE EVANS Address: home [address] [place] [id number] Name: KASANDRA JACKSON Address: home [address] [place] [address] Name: ALONDRA TREVIÑO Address: home UNKNOWN [facility]
--- OUTSIDE RECORDS SUMMARY | 2022-06-13 12:17 | XMS_ITS | Continuity of Care Document ---
:1970 Author Organization [facility] Address [address] [place] [phone]- Care Team Providers Name Role Phone Not on Staff, PCP Primary Care Physician Unavailable Encounter [facility] Date(s): 05/13/21 - 06/12/21 [facility] Endocrinology and Diabetes [address] [place] [id number] Attending Physician: Ibeth Arnold Admitting Physician: Ibeth Arnold Referring Physician: AdmtrIbeth Allergies, Adverse Reactions, Alerts No Known Allergies Medications aspirin 81 mg oral delayed release tablet 81 mg, By Mouth, Daily, Refills 0, Maintenance, 07/28/16 15:09:46 Start Date: 07/28/16 Status: Orderedatorvastatin 80 mg oral tablet = 80 mg, By Mouth, Daily at bedtime, # 30 tablet, 0 Refills, Maintenance, Tablet, Route to Pharmacy Electronically, [id number], [facility] Start Date: 07/28/16 Stop Date: [...] EDT, Height Start Date: 02/03/21 Status: OrderedDexcom Training Coordinator Dexcom Training Coordinator, See Instructions, # 1 each, Refills [...] each, 5 Refills, Maintenance, 01/28/21 11:25:00 EDT, [facility] #[id number], Partial fill upon patient reque... Start Date: 01/28/21 Stop Date: 07/27/21 Status: Orderedmetoprolol 25 mg oral tablet 12.5 mg, 0.5, tablet, By Mouth, 2 times a day, use Metoprolol TARTRATE, # 30 tablet, Refills 0, Tot.Refills 0, Maintenance, 07/28/16 15:16:43, Route to Pharmacy Electronically, [id number], [facility] Start Date: 07/28/16 Stop Date: 08/27/16 Status: OrderedNovoLOG 100 units/mL subcutaneous solution See Instructions, Subcutaneous Injection, infuse up to 60 units SC daily via an insulin pump. T1DM/E10.9, 2 vials needed due to infusion site change every 3 days, # 20 mL, 11 Refills, Maintenance, 10/11/17 13:26:06 EDT Start Date: 10/11/17 Stop Date: 10/06/18 Status: OrderedPen [place], 31 G x 5 mm BD Ultra Fine III See Instructions, # 100 each, Refills 2, Tot. Refills 2, Maintenance, use to inject basaglar daily. for T1DM/E10, 01/25/17 16:26:44, Compound Start Date: 01/25/17 Stop Date: 04/25/17 Status: OrderedPlavix 75 mg oral tablet 75 mg, By Mouth, Daily, # 30 tablet, Refills 0, Tot. Refills 0, Maintenance, 07/28/16 15:09:58, Route to Pharmacy Electronically, [id number], [facility] Start Date: 07/28/16 Stop Date: [...]
--- OUTSIDE RECORDS SUMMARY | 2022-06-13 12:18 | XMS_ITS | Continuity of Care Document ---
:1970 Author Organization [facility] Address [address] [place] [address]- Care Team Providers Name Role Phone Román TAMAYO, Cesilia Agustin Primary Care Physician Encounter [facility] Date(s): 07/01/20 - 07/31/20 [facility] Endocrinology and Diabetes [address] [place] [id number] Allergies, Adverse Reactions, Alerts Substance Reaction Severity Status NKA Active Medications aspirin 81 mg oral delayed release tablet 81 mg, By Mouth, Daily, Refills 0, Maintenance, 07/28/16 15:09:46 Start Date: 07/28/16 Status: Orderedatorvastatin 80 mg oral tablet = 80 mg, By Mouth, Daily at bedtime, # 30 tablet, 0 Refills, Maintenance, Tablet, Route to Pharmacy Electronically, [id number], [facility] Start Date: 07/28/16 Stop [...] Maintenance, 07/28/16 15:16:43, Route to Pharmacy Electronically, [id number], [facility] 3 Start Date: 07/28/16 Stop Date: 08/27/16 Status: OrderedNovoLOG 100 units/mL subcutaneous solution See Instructions, Subcutaneous Injection, infuse up to 60 units SC daily via an insulin pump. T1DM/E10.9, 2 vials needed due to infusion site change every 3 days, # 20 mL, 11 Refills, Maintenance, 10/11/17 13:26:06 EDT Start Date: 10/11/17 Stop Date: 10/06/18 Status: OrderedPen [place], 31 G x 5 mm BD Ultra Fine III See Instructions, # 100 each, Refills 2, Tot. Refills 2, Maintenance, use to inject basaglar daily. for T1DM/E10, 01/25/17 16:26:44, Compound Start Date: 01/25/17 Stop Date: 04/25/17 Status: OrderedPlavix 75 mg oral tablet 75 mg, By Mouth, Daily, # 30 tablet, Refills 0, Tot. Refills 0, Maintenance, 07/28/16 15:09:58, Route to Pharmacy Electronically, [id number], [facility] Start Date: 07/28/16 Stop [...]
--- OUTSIDE RECORDS SUMMARY | 2022-06-13 12:18 | XMS_ITS | Continuity of Care Document ---
:1970 Author Organization [facility] Address [address] [place] [phone]- Care Team Providers Name Role Phone Not on Staff, PCP Primary Care Physician Unavailable Encounter [place] Date(s): 02/12/21 - 06/12/21 [facility] Endocrinology and Diabetes [address] [place] [id number] Attending Physician: Jacob Marks MD Admitting Physician: Kendrick TAMAYO, Jacob Rivero Referring Physician: Volodymyr Burrell MD Allergies, Adverse Reactions, Alerts No Known Allergies Medications aspirin 81 mg oral delayed release tablet 81 mg, By Mouth, Daily, Refills 0, Maintenance, 07/28/16 15:09:46 Start Date: 07/28/16 Status: Orderedatorvastatin 80 mg oral tablet = 80 mg, By Mouth, Daily at bedtime, # 30 tablet, 0 Refills, Maintenance, Tablet, Route to Pharmacy Electronically, [id number], [facility] Start Date: [...] EDT, Height Start Date: 02/03/21 Status: OrderedDexcom Cryptologic Technician Dexcom Cryptologic Technician, See Instructions, # 1 each, Refills 1, [...] each, 5 Refills, Maintenance, 01/28/21 11:25:00 EDT, [id number], Partial fill upon patient reque... Start Date: 01/28/21 Stop Date: 07/27/21 Status: Orderedmetoprolol 25 mg oral tablet 12.5 mg, 0.5, tablet, By Mouth, 2 times a day, use Metoprolol TARTRATE, # 30 tablet, Refills 0, Tot.Refills 0, Maintenance, 07/28/16 15:16:43, Route to Pharmacy Electronically, [id number], [facility] 3 Start Date: 07/28/16 Stop Date: 08/27/16 Status: OrderedNovoLOG 100 units/mL subcutaneous solution See Instructions, Subcutaneous Injection, infuse up to 60 units SC daily via an insulin pump. T1DM/E10.9, 2 vials needed due to infusion site change every 3 days, # 20 mL, 11 Refills, Maintenance, 10/11/17 13:26:06 EDT Start Date: 10/11/17 Stop Date: 10/06/18 Status: OrderedPen [place], 31 G x 5 mm BD Ultra Fine III See Instructions, # 100 each, Refills 2, Tot. Refills 2, Maintenance, use to inject basaglar daily. for T1DM/E10, 01/25/17 16:26:44, Compound Start Date: 01/25/17 Stop Date: 04/25/17 Status: OrderedPlavix 75 mg oral tablet 75 mg, By Mouth, Daily, # 30 tablet, Refills 0, Tot. Refills 0, Maintenance, 07/28/16 15:09:58, Route to Pharmacy Electronically, [id number], [facility] 3 Start Date: 07/28/16 Stop Date: [...]
--- OUTSIDE RECORDS SUMMARY | 2022-06-13 12:18 | XMS_ITS | Continuity of Care Document ---
:1970 Author Organization [facility] Address [address] [place] [phone]- Care Team Providers Name Role Phone Román TAMAYO, Cesilia Agustin Primary Care Physician [place] [facility] [place] 04[place]26[place]22 - 05/26/22 [facility] Endocrinology and Diabetes [address] [place] [id number] Allergies, Adverse Reactions, Alerts No Known Allergies Medications aspirin 81 mg oral delayed release tablet 81 mg, By Mouth, Daily, Refills 0, Maintenance, 07/28/16 15:09:46 Start Date: 07/28/16 Status: Orderedatorvastatin 80 mg oral tablet = 80 mg, By Mouth, Daily at bedtime, # 30 tablet, 0 Refills, Maintenance, Tablet, Route to Pharmacy Electronically, [id number], [facility] Start Date: 07/28/16 [...] EDT, Height Start Date: 02/15/22 Status: OrderedDexcom Manager Oracle Dexcom Manager Oracle, See Instructions, # 1 each, Refills 1, [...] mL, 11 Refills, Maintenance, 02/16/22 11:57:00 EDT, [facility]/pharmacy #[id number], Partial fill upon patient... Start Date: 02/16/22 [...] each, 5 Refills, Maintenance, 01/28/21 11:25:00 EDT, [facility] #[id number], Partial fill upon patient reque... Start Date: 01/28/21 Stop Date: 07/27/21 Status: Orderedmetoprolol 25 mg oral tablet 12.5 mg, 0.5, tablet, By Mouth, 2 times a day, use Metoprolol TARTRATE, # 30 tablet, Refills 0, Tot.Refills 0, Maintenance, 07/28/16 15:16:43, Route to Pharmacy Electronically, [id number], [facility] 3 Start Date: 07/28/16 Stop Date: 08/27/16 Status: OrderedNovoLOG 100 units/mL subcutaneous solution See Instructions, Subcutaneous Injection, infuse up to 60 units SC daily via an insulin pump. T1DM/E10.9, 2 vials needed due to infusion site change every 3 days, # 20 mL, 11 Refills, Maintenance, 05/05/22 10:54:00 EST, [facility]/pharmacy #[id number], 180, cm, 12... Start Date: 05/05/22 Stop Date: 04/30/23 Status: OrderedPen [place], 31 G x 5 mm BD Ultra Fine III See Instructions, # 100 each, Refills 2, Tot. Refills 2, Maintenance, use to inject basaglar daily. for T1DM/E10, 01/25/17 16:26:44, Compound Start Date: 01/25/17 Stop Date: 04/25/17 Status: OrderedPlavix 75 mg oral tablet 75 mg, By Mouth, Daily, # 30 tablet, Refills 0, Tot. Refills 0, Maintenance, 07/28/16 15:09:58, Route to Pharmacy Electronically, [id number], [facility] Start Date: 07/28/16 [...] (General Medicine) Member Role: PCP Address: Address: [address] [place] [address] Name: Joselin Staton RN Position: [facility] RN Member Role: Primary Care Nurse Name: Patricia BARKER, Mally Position: [facility] Hospital Propagator Laborer Member Role: Primary Care Nurse Name: Alondra Burgos Position: [facility] RN Member Role: Primary Care Nurse Name: Sofya Vallecillo RN Position: [facility] Onco RN Member Role: Primary Care Nurse Name: Britni Diop RN Position: [facility] RN Member Role: Primary Care Nurse Care Team Related PersonsName: SPIKE EVANS Address: home [address] [place] [address] Name: KASANDRA JACKSON Address: home [address] [place] [address] Name: ALONDRA TREVIÑO Address: home UNKNOWN [facility]
--- OUTSIDE RECORDS SUMMARY | 2022-06-13 12:18 | XMS_ITS | Continuity of Care Document ---
:1970 Author Organization [facility] Address [address] [place] [phone]- Care Team Providers Name Role Phone Román TAMAYO, Cesilia Agustin Primary Care Physician [place] [facility] [place] - 04/02/22 [facility] Endocrinology and Diabetes [address] [place] [id number] Allergies, Adverse Reactions, Alerts No Known Allergies Medications aspirin 81 mg oral delayed release tablet 81 mg, By Mouth, Daily, Refills 0, Maintenance, 07/28/16 15:09:46 Start Date: 07/28/16 Status: Orderedatorvastatin 80 mg oral tablet = 80 mg, By Mouth, Daily at bedtime, # 30 tablet, 0 Refills, Maintenance, Tablet, Route to Pharmacy Electronically, [id number], [facility] Start Date: 07/28/16 [...] EDT, Height Start Date: 02/15/22 Status: OrderedDexcom Pipe Cleaning Machine Operator Dexcom Pipe Cleaning Machine Operator, See Instructions, # 1 each, Refills 1, [...] mL, 11 Refills, Maintenance, 02/16/22 11:57:00 EDT, [facility]/pharmacy #[id number], Partial fill upon patient... Start Date: 02/16/22 [...] each, 5 Refills, Maintenance, 01/28/21 11:25:00 EDT, [facility] #[id number], Partial fill upon patient reque... Start Date: 01/28/21 Stop Date: 07/27/21 Status: Orderedmetoprolol 25 mg oral tablet 12.5 mg, 0.5, tablet, By Mouth, 2 times a day, use Metoprolol TARTRATE, # 30 tablet, Refills 0, Tot.Refills 0, Maintenance, 07/28/16 15:16:43, Route to Pharmacy Electronically, [id number], [facility] Start Date: 07/28/16 Stop Date: 08/27/16 Status: OrderedNovoLOG 100 units/mL subcutaneous solution See Instructions, Subcutaneous Injection, infuse up to 60 units SC daily via an insulin pump. T1DM/E10.9, 2 vials needed due to infusion site change every 3 days, # 20 mL, 11 Refills, Maintenance, 10/11/17 13:26:06 EDT Start Date: 10/11/17 Stop Date: 10/06/18 Status: OrderedPen [place], 31 G x 5 mm BD Ultra Fine III See Instructions, # 100 each, Refills 2, Tot. Refills 2, Maintenance, use to inject basaglar daily. for T1DM/E10, 01/25/17 16:26:44, Compound Start Date: 01/25/17 Stop Date: 04/25/17 Status: OrderedPlavix 75 mg oral tablet 75 mg, By Mouth, Daily, # 30 tablet, Refills 0, Tot. Refills 0, Maintenance, 07/28/16 15:09:58, Route to Pharmacy Electronically, [id number], [facility] Start Date: 07/28/16 [...] Team PersonnelName: Jose Luis Turner RN Position: [facility] RN Member Role: Primary Care Nurse Name: Román TAMAYO, Cesilia Agustin Position: [facility] Physician (General Medicine) Member Role: PCP Address: Address: [address] [place] [address] Name: Joselin Staton RN Position: [facility] RN Member Role: Primary Care Nurse Name: Mally Gomez RN Position: [facility] Hospital Spanish Linguist Member Role: Primary Care Nurse Name: Alondra Burgos Position: [facility] RN Member Role: Primary Care Nurse Name: Sofya Vallecillo RN Position: [facility] Juana RN Member Role: Primary Care Nurse Name: Britni Diop RN Position: [facility] RN Member Role: Primary Care Nurse Care Team Related PersonsName: NATHAN SPIKE Address: home [address] [place] [address] Name: KASANDRA JACKSON Address: home [address] [place] [address] Name: ALONDRA TREVIÑO Address: home UNKNOWN [facility]
--- OUTSIDE RECORDS SUMMARY | 2022-06-13 12:18 | XMS_ITS | Continuity of Care Document ---
:1970 Author Organization [facility] Address [address] [place] [id number]- Care Team Providers Name Role Phone Aundrea Zuniga MD Primary Care Physician En[place] [facility] [place](s): 07/12/19 - 07/22/19 [facility] [address] [place] [id number]- [facility] Attending Physician: Ibeth Arnold Admitting Physician: AdmIbeth kirkland Referring Physician: Admtr, ArElieser Allergies, Adverse Reactions, Alerts Substance Reaction Severity Status NKA Active Medications aspirin 81 mg oral delayed release tablet 81 mg, By Mouth, Daily, Refills 0, Maintenance, 07/28/16 15:09:46 Start Date: 07/28/16 Status: OrderedAtivan 0.5 mg oral tablet 1 tablet = 0.5 mg, By Mouth, 2 times a day, PRN as needed for anxiety, may take 2 HS if needed, 0 Refills, Maintenance, 08/09/16 10:30:08, Tablet Start Date: 08/09/16 Status: Orderedatorvastatin 80 mg oral tablet = 80 mg, By Mouth, Daily at bedtime, # 30 tablet, 0 Refills, Maintenance, Tablet, Route to Pharmacy Electronically, [id number], [facility] Start Date: 07/28/16 Stop [...] Start Date: 10/11/17 Stop Date: 10/06/18 Status: OrderedGlucagon Emergency Kit See Instructions, # [...] 13:24:53 EDT, Compound Start Date: 10/11/17 Status: OrderedLevemir 100 units/mL subcutaneous solution = 18 units, Subcutaneous Injection, Daily in PM, # 10 mL, 0 Refills, Maintenance, 07/17/16 4:00:56, Solution Start Date: 07/17/16 Status: OrderedLyrica 75 mg oral capsule 1 capsule = 75 mg, By Mouth, 2 times a day, # 60 capsule, 0 Refills, Maintenance, 07/28/16 15:17:53,Capsule Start Date: 07/28/16 Stop Date: 08/27/16 Status: Orderedmetoprolol 25 mg oral tablet 12.5 mg, 0.5, tablet, By Mouth, 2 times a day, use Metoprolol TARTRATE, # 30 tablet, Refills 0, Tot.Refills 0, Maintenance, 07/28/16 15:16:43, Route to Pharmacy Electronically, [id number], [facility] Start Date: 07/28/16 Stop Date: 08/27/16 Status: OrderedNovoLOG 100 units/mL subcutaneous solution See Instructions, Subcutaneous Injection, infuse up to 60 units SC daily via an insulin pump. T1DM/E10.9, 2 vials needed due to infusion site change every 3 days, # 20 mL, 11 Refills, Maintenance, 10/11/17 13:26:06 EDT Start Date: 10/11/17 Stop Date: 10/06/18 Status: OrderedPen [place], 31 G x 5 mm BD Ultra Fine III See Instructions, # 100 each, Refills 2, Tot. Refills 2, Maintenance, use to inject basaglar daily. for T1DM/E10, 01/25/17 16:26:44, Compound Start Date: 01/25/17 Stop Date: 04/25/17 Status: OrderedPlavix 75 mg oral tablet 75 mg, By Mouth, Daily, # 30 tablet, Refills 0, Tot. Refills 0, Maintenance, 07/28/16 15:09:58, Route to Pharmacy Electronically, [id number], [facility] Start Date: 07/28/16 Stop Date: 08/27/16 Status: OrderedTylenol 325 mg oral tablet 650 mg, By Mouth, Every 6 hours, PRN, Refills 0, Maintenance, Pain , Mild, 07/28/16 15:09:26 Start Date: 07/28/16 Status: Ordered Problem List Condition Effective Dates Status Health Status Informant 3-vessel coronary artery Active disease(Confirmed) T1DM (type 1 diabetes Active mellitus)(Confirmed) Social History Social History Type Response Smoking Status Former smoker entered on: 09/17/17 Sex
== END 2022-06-13 12:35 | disposition home or self-care (01) ==
LOC: HO.ED 12:15
PROVIDERS: Emergency Provider Emergency Medicine; PCP Internal Medicine
DX: M54.50 Low back pain, unspecified (principal); M25.512 Pain in left shoulder; M62.830 Muscle spasm of back; Z79.899 Other long term (current) drug therapy
CPT/HCPCS: 99282; 99283

== ENCOUNTER 2022-06-15 01:49 | Emergency (ER) | payer OTHER, SELFPAY ==
--- NOTE | 2022-06-15 | ECG_ITS ---
Test Reason : cp Blood Pressure : / mmHG Vent. Rate : 057 BPM Atrial Rate : 057 BPM P-R Int : 218 ms QRS Dur : 082 ms QT Int : 402 ms P-R-T Axes : 060 031 066 degrees QTc Int : 391 ms Sinus bradycardia with 1st degree A-V block T inversions anteroseptal leads, cannot exclude ischemia When compared with ECG of 26-MAR-2019 13:44, T inversions more prominent Referred By: Logan Frank Electronically Signed By:TIM BLISS
[2022-06-15 02:22] VITALS: BP 117/59; PULSE 64; RESP 18; TEMP 36.9; O2SAT 98; BMI 27.4
--- NOTE | 2022-06-15 04:00 | ED.GENADULT ---
HPI - General Adult General Chief complaint: General Medical Stated complaint: back pain Time Seen by Provider: 06/15/22 04:00 Source: patient Mode of arrival: ambulatory Limitations: no limitations History of Present Illness HPI narrative: Patient 51 years old with history of type 1 diabetes, Crohn disease, CAD status post 4 vessel cardiac bypass 2018, HLD, hypertension was seen here on 06/13 for upper back pain discharged on Flexeril comes here as pain is still going on. Patient denies any chest pain no palpitation no shortness of breath patient worried about the heart as when he had cardiac bypass he had similar kind of pain. This time pain get worse on movement and palpation of the rhomboids. No fever no chills no shortness of breath Related Data Home Medications Medication Instructions Recorded Confirmed blood sugar diagnostic #10 ea 03/11/20 famotidine 20 mg tablet 20 mg PO BEDTIME 03/11/20 fluoxetine 60 mg tablet 60 mg PO DAILY 03/11/20 omeprazole 20 mg capsule,delayed 20 mg PO BID 03/11/20 release ropinirole 2 mg tablet 2 mg PO BEDTIME 03/11/20 tadalafil 10 mg tablet [id number] mg PO 03/11/20 tramadol 50 mg tablet 50 mg PO Q6H PRN 03/11/20 adalimumab 80 mg/0.8 mL mg subcut 07/15/20 subcutaneous pen kit Previous Rx's Medication Instructions Recorded hydrocortisone acetate 25 mg 25 mg DE BEDTIME 30 days #30 ea 01/23/20 rectal suppository mesalamine 1,000 mg rectal 1 g DE BEDTIME 30 days #30 ea 01/24/20 suppository sildenafil 100 mg tablet (Viagra) 100 mg PO DAILY PRN sexual 03/11/20 activity 30 days #4 tabs atorvastatin 80 mg tablet 80 mg PO DAILY 90 days #90 tabs 05/03/20 metoprolol tartrate 25 mg tablet 25 mg PO DAILY 90 days #90 tabs 05/03/20 mesalamine 1.2 gram tablet,delayed 3.6 g PO DAILY #90 tabs 06/04/20 release cyproheptadine 4 mg tablet 4 mg PO BID #60 tabs 07/29/20 blood sugar diagnostic #200 ea 08/21/20 Novolog U-100 Insulin aspart 100 60 unit (0.6 mL) subcut DAILY #20 04/11/22 unit/mL subcutaneous solution mL (insulin aspart U-100) cyclobenzaprine 10 mg tablet 10 mg PO TID PRN muscle spasm #14 06/13/22 tabs ibuprofen 600 mg tablet 600 mg PO Q8H PRN pain #20 tabs 06/13/22 lidocaine 5 % topical patch 1 patch topical DAILY #15 ea 06/13/22 tramadol 50 mg tablet 50 mg PO Q6H PRN pain #20 tabs 06/15/22 Allergies Allergy/AdvReac Type Severity Reaction Status Date / Time No Known Allergies Allergy Verified 07/15/20 14:17 [No Known Allergies*] Review of Systems Review of Systems: Yes all other systems are reviewed and are negative [facility] Past Medical History Medical History CAD (coronary artery disease) HLD (hyperlipidemia) Surgical History History of quadruple bypass Hx of colonoscopy Family History Family History Father CVD (cardiovascular disease) Mother Cancer Social History Social History Alcohol intake: never Advance Directives: No Advance Directives Information Provided: Yes Physical Exam ED Vital Signs: Vital Signs - 24 hr 06/15/22 02:22 Temperature 98.4 F Pulse Rate 64 Respiratory Rate 18 Blood Pressure 117/59 L Pulse Oximetry 98 Oxygen Delivery Method Room Air BMI result Body Mass Index 27.4 Appearance: Alert. Oriented X3. No acute distress. Eyes: PERRLA, No Nystagmus ENT: Pharynx normal. Oral Mucosa moist Neck: Normal inspection. Neck supple. CVS: Normal heart rate and rhythm. Pulses normal. Respiratory: No respiratory distress. Equal air entry bilateral, no wheezing/rales/rhonchi Abdomen: Soft and nontender. Bowel sounds are present, Skin: Skin warm and dry. Normal skin color. Normal skin turgor. Extremities: No lower extremity edema. No calf tenderness back: Tenderness at the left rhomboid area increases on pushing Neuro: Oriented X 3. No motor deficit. Medications Administered Discontinued Medications Generic Name Dose Route Start Last Admin Trade Name Freq PRN Reason Stop Dose Admin Tramadol HCl 50 mg 06/15/22 04:39 06/15/22 04:48 Tramadol Hcl 50 Mg Tablet PO 06/15/22 04:40 50 mg ONCE ONE Administration Medical Decision Making Medical Decision Making [facility] Narrative: Patient with left rhomboid strain while at work workup negative for coronary disease will discharge patient home on tramadol Differential Diagnosis Muscular pain/coronary disease referred pain Lab Data [facility] Lab Attestation statement: I reviewed the patient's lab results. 06/15/22 04:26 06/15/22 04:26 Labs: Lab Results 06/15/22 06/15/22 06/15/22 Range/Units 04:26 04:26 04:26 WBC 5.7 (4.8-10.8) X10*3/uL RBC 4.21 L (4.60-5.80) X10*6/uL Hgb 13.8 L (14.0-18.0) g/dl Hct 39.1 L (42.0-52.0) % MCV 92.9 (80.0-98.0) fL MCH 32.8 (27.0-33.0) pg MCHC 35.3 (31.0-36.0) g/dl RDW 12.0 (11.0-16.0) % Plt Count 207 (160-400) X10*3/uL MPV 10.5 (9.4-12.4) fL Immature Gran % (Auto) 0.2 (0.0-0.4) % Neut % (Auto) 34.4 L (45-73) % Lymph % (Auto) 47.6 H (20-40) % [place] % (Auto) 10.2 (2-11) % Eos % (Auto) 5.8 H (0-4) % Baso % (Auto) 1.8 (0-2) % Lymph # (Auto) 2.7 (1.2-4.9) X10*3/uL [place] # (Auto) 0.6 (0.1-1.2) X10*3/uL Eos # (Auto) 0.3 (0.0-0.4) X10*3/uL Baso # (Auto) 0.1 (0.0-0.2) X10*3/uL Abs Immat Gran (auto) 0.01 (0.00-0.03) X10*3/uL Absolute Neuts (auto) 2.0 (2.0-8.3) x10*3/uL Absolute Nucleated RBC 0.000 (0.0-0.012) X10*3/uL Nucleated RBC % (auto) 0.0 (0.0-0.2) /100WBC Sodium 142 (135-145) mmol/L Potassium 4.4 (3.3-5.1) mmol/L Chloride 106 (96-108) mmol/L Carbon Dioxide 28 (22-29) mmol/L Anion Gap 12 (12-20) BUN 17 H (9-16) mg/dL Creatinine 1.02 (0.5-1.4) mg/dL Estim Creat Clear Calc 77.3 Estimated GFR > 60 Random Glucose 82 (60-115) mg/dL Calcium 8.9 (8.4-10.2) mg/dL Total Bilirubin 0.6 (0.0-1.0) mg/dL AST 23 (5-37) U/L ALT 28 (0-40) U/L Alkaline Phosphatase 87 (39-117) U/L Troponin I High Sens < 3.5 (<3.5-35.0) ng/L Total Protein 6.2 L (6.5-8.0) g/dL Albumin 3.9 (3.5-5.0) g/dL Independent Interpretation I performed an independent interpretation of an: EKG Interpretation: Normal sinus rhythm sinus bradycardia 57 beats per minute normal interval normal axis no acute ST change no acute ischemia Discharge Plan Discharge Clinical Impression: Rhomboid muscle strain Patient Disposition: Home, Self-Care Instructions: Thoracic Back Strain (ED) Additional Instructions: Rest at your home avoid pushing and lifting movements Tramadol for severe pain Follow with PCP Prescriptions: New tramadol 50 mg tablet 50 mg PO Q6H PRN (Reason: pain) Qty: 20 0RF No Action hydrocortisone acetate 25 mg suppository 25 mg DE BEDTIME 30 Days Qty: 30 2RF mesalamine 1,000 mg suppository 1 g DE BEDTIME 30 Days Qty: 30 3RF atorvastatin 80 mg tablet 80 mg PO DAILY 90 Days Qty: 90 4RF metoprolol tartrate 25 mg tablet 25 mg PO DAILY 90 Days Qty: 90 3RF mesalamine 1.2 gram tablet,delayed release (DR/EC) 3.6 g PO DAILY Qty: 90 1RF cyproheptadine 4 mg tablet 4 mg PO BID Qty: 60 2RF (DME) blood sugar diagnostic Strip See Rx Instructions .ROUTE .MEDSUPPLY Qty: 200 11RF Rx Instructions: E10.65, Test Blood Sugar 4 times a day. 30 days insulin aspart U-100 [Novolog U-100 Insulin aspart] 100 unit/mL solution 60 unit subcut DAILY Qty: 20 6RF cyclobenzaprine 10 mg tablet 10 mg PO TID PRN (Reason: muscle spasm) Qty: 14 0RF ibuprofen 600 mg tablet 600 mg PO Q8H PRN (Reason: pain) Qty: 20 0RF lidocaine 5 % adhesive patch,medicated 1 patch topical DAILY Qty: 15 0RF Rx Instructions: leave on most painful area for up to 12 hrs (DME) Contour Next Test Strips Strip See Rx Instructions Not Applicable .MEDSUPPLY Qty: 10 Rx Instructions: As directed omeprazole 20 mg capsule,delayed release(DR/EC) 20 mg PO BID tramadol 50 mg tablet 50 mg PO Q6H PRN fluoxetine 60 mg tablet 60 mg PO DAILY tadalafil 10 mg tablet [id number] mg PO ropinirole 2 mg tablet 2 mg PO BEDTIME famotidine 20 mg tablet 20 mg PO BEDTIME sildenafil [Viagra] 100 mg tablet 100 mg PO DAILY PRN (Reason: sexual activity) 30 Days Qty: 4 6RF Rx Instructions: administer 30 minutes to 4 hours before activity [place](CF) Pen [id number] 80 mg/0.8 mL pen injector kit subcut Stand Alone Forms: Work/School Release Interventions: ED Discharge Assessment Last Done: 06/15/22 05:37 Discharge Date/Time: 06/15/22 05:39
[2022-06-15 04:30] LABS: MANUAL DIFF FLAG NO
[2022-06-15 04:31] LABS: Basophils Absolute Auto 0.1 X10*3/uL (0.0-0.2); Basophils Percent Auto 1.8 % (0-2); Eosinophils Absolute Auto 0.3 X10*3/uL (0.0-0.4); Eosinophils Percent Auto 5.8 % (0-4); Hematocrit 39.1 % (42.0-52.0); Hemoglobin 13.8 g/dl (14.0-18.0); Imm Gran Abs Auto 0.01 X10*3/uL (0.00-0.03); Imm Gran Pct Auto 0.2 % (0.0-0.4); Lymphocytes Absolute Auto 2.7 X10*3/uL (1.2-4.9); Lymphocytes Percent Auto 47.6 % (20-40); Mean Corpuscular HGB Conc 35.3 g/dl (31.0-36.0); Mean Corpuscular Hemoglobin 32.8 pg (27.0-33.0); Mean Corpuscular Volume 92.9 fL (80.0-98.0); Mean Platelet Volume 10.5 fL (9.4-12.4); Monocytes Absolute Auto 0.6 X10*3/uL (0.1-1.2); Monocytes Percent Auto 10.2 % (2-11); Neutrophils Percent Auto 34.4 % (45-73); Platelet Count 207 X10*3/uL (160-400); Red Blood Count 4.21 X10*6/uL (4.60-5.80); White Blood Count 5.7 X10*3/uL (4.8-10.8)
[2022-06-15] MEDS: traMADoL HCL 50 MG TABLET PO (04:48)
[2022-06-15 05:05] LABS: Alanine Aminotransferase 28 U/L (0-40); Albumin Level 3.9 g/dL (3.5-5.0); Alkaline Phosphatase 87 U/L (39-117); Anion Gap 12 (12-20); Aspartate Amino Transferase 23 U/L (5-37); Bilirubin Total 0.6 mg/dL (0.0-1.0); Blood Urea Nitrogen 17 mg/dL (9-16); Calcium 8.9 mg/dL (8.4-10.2); Carbon Dioxide 28 mmol/L (22-29); Chloride 106 mmol/L (96-108); Creatinine Clr Calc Pharmacy 77.3; Estimated Glomerular Filt Rate > 60; Glucose Random 82 mg/dL (60-115); Potassium 4.4 mmol/L (3.3-5.1); Sodium 142 mmol/L (135-145); Total Protein 6.2 g/dL (6.5-8.0); Troponin-I High Sensitivity < 3.5 ng/L (<3.5-35.0)
== END 2022-06-15 05:39 | disposition home or self-care (01) ==
PROVIDERS: Emergency Provider Internal Medicine; PCP Internal Medicine
DX: M54.50 Low back pain, unspecified (principal); R07.89 Other chest pain; I25.10 Atherosclerotic heart disease of native coronary artery without angina pectoris; Z79.899 Other long term (current) drug therapy
CPT/HCPCS: 36415; 80053; 84484; 85025; 93005; 99283

== ENCOUNTER → 2022-06-28 09:27 | Outpatient (BNVA) | payer OTHER, SELFPAY | PROVIDERS: PCP Internal Medicine; Visit Provider Physician Assistant Medical | DX: S29.012A Strain of muscle and tendon of back wall of thorax, initial encounter (principal); S39.012A Strain of muscle, fascia and tendon of lower back, initial encounter; X50.1XXA Overexertion from prolonged static or awkward postures, initial encounter | CPT/HCPCS: 72072; 72100; 99203 ==

== ENCOUNTER → 2022-07-14 13:46 | Outpatient (BNVA) | payer OTHER, SELFPAY | PROVIDERS: PCP Internal Medicine; Visit Provider Physician Assistant Medical | DX: S29.012D Strain of muscle and tendon of back wall of thorax, subsequent encounter (principal); S39.012D Strain of muscle, fascia and tendon of lower back, subsequent encounter; X50.1XXD Overexertion from prolonged static or awkward postures, subsequent encounter | CPT/HCPCS: 99213 ==

== ENCOUNTER 2022-07-20 13:00 | Outpatient (RCR) | payer OTHER, SELFPAY ==
--- NOTE | 2022-06-29 15:39 | MHC.PT.EP ---
[facility] [place] Office [place] Office [place] Office [address] Khurram Dillard [address] [phone] F: [phone] F: [phone] F: [phone] F: [phone] Physical Therapy Plan of Care Date of Evaluation: Date of Surgery: NA Diagnosis: THORACIC INJURY Assessment: Pt IS 51 YO M REFERRED TO PT FROM ([facility]) WITH THORACIC LUMBAR STRAIN. 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 KEPT WORKING BUT NOT GOING AWAY SO REPORTED IT TO INSTRUCTOR OF EDUCATION. WENT TO WORK NEXT FEW DAYS, HAD DAY OFF AND WENT TO ER 06/13/22 AND WAS GIVEN PAIN MED AND DC. REPORTS THE PAIN FELT SIMILAR TO THE PAIN HE HAD WHEN HE HAD CARDIAC ISSUES IN PAST, WENT BACK TO ER ON 06/15/22 . PER THAT ER ASSESSMENT Independent Interpretation I performed an independent interpretation of an: EKG Interpretation: Normal sinus rhythm sinus bradycardia 57 beats per minute normal interval normal axis no acute ST change no acute ischemia Discharge Plan Discharge Clinical Impression: Rhomboid muscle strain Patient Disposition: Home, Self-Care Instructions: Thoracic Back Strain Additional Instructions: Rest at your home avoid pushing and lifting movements Tramadol for severe pain Follow with PCP Prescriptions: New tramadol 50 mg tablet 50 mg PO Q6H PRN (Reason: pain) Qty: 20 0RF WENT TO YESTERDAY AND WAS GIVEN 1 WK OFF THEN 2-4 WKS OF LIGHT DUTY AND REFERRED TO PT WENT TO PT (CANT REMEMBER WHERE) FOR EVAL ONLY PRESENTS TO PT WITH POOR POSTURE, DECREASED R SHLDER ROM AND STRENGTH, TTP UPPER BACK, OOW. SHOULD BENEFIT FROM PT TO ADDRESS THESE ISSUES Frequency and Duration: The patient will be seen 2X/WK X 4 WKS Short Term Goals: 1. INCREASED POSTURE AWARENESS 2. Pt TO DEMONSTRATE 2-3 WORK REL TASKS WITH PROPER BODY MECH 3. RTW Detention Goals: 1. I HEP WITH DC EX PLAN 2. DECREASED TRUNK AND R SHOULDER PAIN AT LEAST 50% WITH ADLS 3. INCREASED R SHLDER ROM 10 DEGREES FLEX AND ABD 4. R SHLDER FLEX AND ABD STRENGTH 5/5 EA Treatment Plan: Modalities to reduce pain, spasms and effusion. Manual therapy to restore motion and function. Therapeutic exercise to improve strength and flexibility. Neuromuscular re-education for posture and balance. Therapeutic activities to return to functional activities of daily living. Electronically signed by: JAIRO RODRIGUES PT Please sign and return to therapist. Thank you for your referral.
--- NOTE | 2022-07-07 15:19 | MHC.PT.OD ---
[facility] [place] Office [place] Office [place] Office [address] Khurram Dillard [address] [phone] F: [phone] F: [phone] F: [phone] F: [phone] Physical Therapy Daily Note Diagnosis: THORACIC INJURY Date of Surgery: NA Date of Evaluation: 06/29/22 Date of Treatment: 07/07/22 Treatments to Date: Cancellations to Date: No Shows to Date: Authorized Visits: 2 Insurance End Date: Precautions/ Contraindications:CARDIAC. HX OF QUADRUPLE BYPASS Subjective: Its about the same really. Pt reports hx poor compliance with HEP sheets given last week. Reports was told no light duty is available- remains OOW. Pain Score and Location: r UPPER BACK> LOWER BACK Objective Flowsheet: Tests & Measures Blood sugar 176 during visit after bike BP after bike: 138/78mmHgm HR84 bpm, SP02 98%. Exercises SCIFIT bike level 3.0- pt requesting more resistance on LE increased to 4.0 x 10 minutes INST IN AND PERF CHIN TUCK IN SUP AND SIT/STAND, TOWEL ROLL PEC STRETCH x 5 minutes rolled towel, SL open books x 5R x gentle stretch each side, AAROM table slides sitting in flexion and with lateral trunk flexion stretch position x 5R each way. Pt Therapist inquired with patient status of work- Peter reports he was told there is no light duty available- pt encouraged to set up appts at a frequency of 2x/week. Pt expressing financial hardship with gas and being OOW- offered [facility] service which CORE covers.. patient to consider. Therapist educated patient in the benefit of having PT frequency of therapy at twice weekly vs scheduled once weekly as he has booked right now. ED RE EVAL FINDINGS/RX PLAN, ED RE POSTURE WITH TOWEL ROLL Modalities Assessment: 07/07/22 Pt remains OOW reports no light duty is available. Pt reports he was working in this new role about a month prior to injury. Pt reports he is feeling soreness throughout various areas his back/R UE.. Vitals monitored during session. BP post bike 138/78mmHg, HR 84 bpm, Sp02 98%. Pt was educated/encouraged in the benefit in a gentle low impact walking program starting slowly 5-10-15 minutes to ease mm tension, lower blood sugar, and aide heart health. Pt hesitant and educated in increasing frequency of therapy twice weekly. Poor functional squat observed with screening- will benefit from education for body mechanics. Pt also educated in benefit in low load gentle frequency of stretching to ease mm tissue. Tight thoracic paraspinals will benefit from trial manual therapy next session in addition to lifting mechanics. Pt IS 51 YO M REFERRED TO PT FROM ([facility]) WITH THORACIC LUMBAR STRAIN. 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 WENT TO WORK NEXT FEW DAYS, HAD DAY OFF AND WENT TO ER 06/13/22 AND WAS GIVEN PAIN MED AND DC. REPORTS THE PAIN FELT SIMILAR TO THE PAIN HE HAD WHEN HE HAD CARDIAC ISSUES IN PAST, WENT BACK TO ER ON 06/15/22 . PER THAT ER ASSESSMENT Independent Interpretation I performed an independent interpretation of an: EKG Interpretation: Normal sinus rhythm sinus bradycardia 57 beats per minute normal interval normal axis no acute ST change no acute ischemia Discharge Plan Discharge Clinical Impression: Rhomboid muscle strain Patient Disposition: Home, Self-Care Instructions: Thoracic Back Strain Additional Instructions: Rest at your home avoid pushing and lifting movements Tramadol for severe pain Follow with PCP Prescriptions: New tramadol 50 mg tablet 50 mg PO Q6H PRN (Reason: pain) Qty: 20 0RF WENT TO YESTERDAY AND WAS GIVEN 1 WK OFF THEN 2-4 WKS OF LIGHT DUTY AND REFERRED TO PT WENT TO PT (CANT REMEMBER WHERE) FOR EVAL ONLY PRESENTS TO PT WITH POOR POSTURE, DECREASED R SHLDER ROM AND STRENGTH, TTP UPPER BACK, OOW. SHOULD BENEFIT FROM PT TO ADDRESS THESE ISSUES PT Plan: UPPER BODY STRETCH AND STRENGTHEN, POSTURE WORK, ST WORK UPPER BACK Short Term Goals: 1. INCREASED POSTURE AWARENESS 2. Pt TO DEMONSTRATE 2-3 WORK REL TASKS WITH PROPER BODY MECH 3. RTW Licensed Nurse Practitioner Goals: 1. I HEP WITH DC EX PLAN 2. DECREASED TRUNK AND R SHOULDER PAIN AT LEAST 50% WITH ADLS 3. INCREASED R SHLDER ROM 10 DEGREES FLEX AND ABD 4. R SHLDER FLEX AND ABD STRENGTH 5/5 EA Electronically signed by: Jada Bills, PT, DPT
--- NOTE | 2022-11-09 07:45 | MHC.PT.DC ---
[facility] [place] Office [place] Office [place] Office [address] Khurram Dillard [address] [phone] F: [phone] F: [phone] F: [phone] F: [phone] Physical Therapy Discharge Report Diagnosis: THORACIC INJURY Date of Surgery: NA Date of Evaluation: 06/29/22 Date of Discharge: 11/09/22 Treatments to Date: Cancellations to Date: No Shows to Date: Discharge Status: Discharge Summary: Pt SEEN FOR INIT EVAL AND 3 SESSIONS WITHOUT SIGNIF CHANGE IN SXS. THEN 2 VISITS CANCELLED PER THERAPY. 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 Electronically signed by: JAIRO RODRIGUES PT Please sign and return to therapist. Thank you for your referral.
== END 2022-11-09 07:46 | disposition home or self-care (01) ==
LOC: HO.PTWFD 13:00
PROVIDERS: PCP Internal Medicine; Visit Provider Physician Assistant Medical
DX: S39.012D Strain of muscle, fascia and tendon of lower back, subsequent encounter (principal); S29.012D Strain of muscle and tendon of back wall of thorax, subsequent encounter
CPT/HCPCS: 97110; 97140; 97161; 97530; 97535

== ENCOUNTER → 2022-08-04 13:12 | Outpatient (BNVA) | payer OTHER, SELFPAY | PROVIDERS: PCP Internal Medicine; Visit Provider Physician Assistant Medical | DX: S29.012D Strain of muscle and tendon of back wall of thorax, subsequent encounter (principal); S39.012D Strain of muscle, fascia and tendon of lower back, subsequent encounter; X50.1XXD Overexertion from prolonged static or awkward postures, subsequent encounter | CPT/HCPCS: 99213 ==

== ENCOUNTER 2022-08-09 15:05 | Outpatient (REF) | payer OTHER, SELFPAY ==
--- NOTE | ~2022-08-09 | MR_ITS ---
EXAMINATION: MR THORACIC SPINE WITHOUT CONTRAST CLINICAL INFORMATION: Back pain. Radicular symptoms. COMPARISON: Thoracic spine radiographs 06/28/2022. TECHNIQUE: MRI of the thoracic spine was obtained using routine sequences without contrast. FINDINGS: Alignment is normal. Vertebral heights are preserved. No acute bone marrow signal changes. There is slight loss of intervertebral disc height and T2 signal intensity at multiple levels related to disc degeneration. Annular contours are normal and there is no canal or neuroforaminal compromise. No cord compression or abnormal intramedullary signal changes. Limited visualization of intrathoracic anatomy reveals no abnormal finding. Specifically no paraspinal soft tissue mass or collection. MR/MR thoracic spine wo con IMPRESSION: Normal thoracic spine MRI.
== END 2022-08-09 15:06 | disposition home or self-care (01) ==
LOC: HO.MRI 15:05
PROVIDERS: PCP Internal Medicine; Visit Provider Physician Assistant Medical
DX: M54.6 Pain in thoracic spine (principal)
CPT/HCPCS: 72146

== ENCOUNTER → 2022-08-16 13:20 | Outpatient (BNVA) | payer OTHER, SELFPAY | PROVIDERS: PCP Internal Medicine; Visit Provider Physician Assistant Medical | DX: S29.012D Strain of muscle and tendon of back wall of thorax, subsequent encounter (principal); S39.012D Strain of muscle, fascia and tendon of lower back, subsequent encounter; X50.1XXD Overexertion from prolonged static or awkward postures, subsequent encounter | CPT/HCPCS: 99213 ==